=== PATIENT | female | born 1970 | race Caucasian/White ===

== ENCOUNTER 2017-09-26 18:53 | Inpatient (IN) | payer BC ==
[~2017-09-26] VITALS: Ht 162.6 cm; Wt 52.9 kg
[2017-09-26 18:15] VITALS: BP 101/55; PULSE 65; RESP 18
[2017-09-26] MEDS ORDERED: LACTULOSE 30ML CUP PO PRN (19:30)
[2017-09-26] MEDS ORDERED: MAGNESIUM HYDROXIDE 30ML CUP PO PRN (19:30)
[2017-09-26] MEDS ORDERED: ACETAMINOPHEN 325 MG TAB PO PRN (19:30)
[2017-09-26] MEDS ORDERED: BISACODYL 10 MG SUPP PR PRN (19:30)
[2017-09-26 20:00] VITALS: BP 102/60; PULSE 86; RESP 18
[2017-09-26] MEDS ORDERED: DOCUSATE SODIUM 100 MG CAP PO SCH (21:00)
[2017-09-26] MEDS ORDERED: SENNA TAB PO SCH (21:00)
[2017-09-26] MEDS ORDERED: ACETAMINOPHEN 650MG/20.3ML CUP GTB PRN (22:00)
[2017-09-26] MEDS ORDERED: ONDANSETRON 4 MG INJ IV PRN (22:00)
[2017-09-26] MEDS ORDERED: ARTIFICIAL TEARS 15 ML OPH BOTH EYES PRN (22:00)
[2017-09-26] MEDS ORDERED: HYDROCODONE/APAP (5/325) TAB GTB PRN ×2 (22:00→22:30)
[2017-09-26] MEDS ORDERED: ACETAMINOPHEN 650 MG SUPP PR PRN (22:00)
[2017-09-26] MEDS: LEVETIRACETAM (100 MG/ML) 5ML CUP GTB SCH (22:02)
[2017-09-26] MEDS ORDERED: LORAZEPAM 2 MG INJ IV PRN (22:30)
[2017-09-27 00:12] VITALS: Ht 162.6 cm; Wt 52.9 kg
[2017-09-27] MEDS: LORAZEPAM 2 MG INJ IV PRN ×5 (00:33→23:58)
[2017-09-27 02:00] VITALS: BP 101/62; RESP 18
[2017-09-27 03:50] LABS: ADD UMIC NO; UR ASCORBIC ACID NEGATIVE (NEGATIVE); UR BILIRUBIN (Dip) NEGATIVE (NEGATIVE); UR BLOOD (Dip) NEGATIVE (NEGATIVE); UR CLARITY CLEAR (CLEAR); UR COLOR YELLOW (YELLOW); UR GLUCOSE (Dip) NEGATIVE (NEGATIVE); UR KETONES (Dip) NEGATIVE (NEGATIVE); UR LEUKOCYTE ESTERASE (Dip) NEGATIVE Leu/ul (NEGATIVE); UR NITRITE (Dip) NEGATIVE (NEGATIVE); UR SPECIFIC GRAVITY (Dip) 1.006 (1.003-1.030); UR TOTAL PROTEIN (Dip) NEGATIVE (NEGATIVE); UR UROBILINOGEN (Dip) NEGATIVE (NEGATIVE)
[2017-09-27] MEDS: LANSOPRAZOLE 30 MG CAP GTB SCH (06:45)
[2017-09-27] MEDS: L ACIDOPHIL/B LACTIS/B LONGUM CAPSULE PO SCH ×3 (06:45→18:23)
[2017-09-27] MEDS: CIPROFLOXACIN 500 MG TAB GTB SCH ×2 (06:45→18:23)
[2017-09-27] MEDS: LEVOTHYROXINE 100 MCG TAB GTB SCH (06:45)
[2017-09-27 07:00] VITALS: BP 108/64; RESP 18
[2017-09-27 07:27] LABS: BASOPHILS % 0.6 % (0.0-2.0); EOSINOPHILS # 0.1 10^3/ul (0.0-0.5); EOSINOPHILS % 1.8 % (0.0-7.0); HEMATOCRIT 33.5 % (37.0-47.0); HEMOGLOBIN 10.7 g/dl (12.0-16.0); LYMPHOCYTES % 38.7 % (15.0-51.0); MEAN CORPUSCULAR HEMOGLOBIN 30.7 pg (29.0-33.0); MEAN CORPUSCULAR HGB CONC 31.9 g/dl (32.0-37.0); MEAN CORPUSCULAR VOLUME 96.3 fl (82.0-101.0); MEAN PLATELET VOLUME 10.2 fl (7.4-10.4); MONOCYTE # 0.4 10^3/ul (0.3-0.9); MONOCYTES % 7.2 % (0.0-11.0); NEUTROPHIL # 2.6 10^3/ul (1.6-7.5); NEUTROPHILS % 51.5 % (39.0-77.0); PLATELET COUNT 218 10^3/UL (140-415); RED BLOOD COUNT 3.48 10^6/ul (4.20-5.40); RED CELL DISTRIBUTION WIDTH 14.8 % (11.5-14.5); WHITE BLOOD COUNT 5.1 10^3/ul (4.8-10.8)
[2017-09-27 07:55] LABS: ALBUMIN 3.7 g/dl (3.3-4.9); ALBUMIN/GLOBULIN RATIO 1.37; BILIRUBIN,INDIRECT 0.1 mg/dl (0-1.1); BILIRUBIN,TOTAL 0.1 mg/dl (0.2-1.3); CALCIUM 9.1 mg/dl (8.4-10.2); CREATININE 0.54 mg/dl (0.44-1.00); POTASSIUM 4.2 mmol/L (3.5-5.1); TOTAL PROTEIN 6.4 g/dl (6.1-8.1)
[2017-09-27] MEDS ORDERED: SENNA (PO SYG) GTB SCH (09:00)
[2017-09-27] MEDS: VALPROIC ACID LIQUID CUP 250 MG/5 ML CUP GTB SCH ×2 (09:15→20:46)
[2017-09-27] MEDS: LEVETIRACETAM (100 MG/ML) 5ML CUP GTB SCH ×2 (09:16→20:48)
[2017-09-27] MEDS: MULTIVITAMINS 30 ML CUP GTB SCH (09:17)
[2017-09-27] MEDS: FOLIC ACID 1 MG TAB GTB SCH (09:17)
[2017-09-27] MEDS: DOCUSATE SODIUM 10 MG/ML (10ML CUP) GTB SCH ×2 (09:18→20:46)
[2017-09-27] MEDS: SENNA (PO SYG) GTB SCH ×2 (09:18→20:46)
[2017-09-27] MEDS: BALSAM PERU/CASTOR OIL 60 GM TUBE TOP SCH ×2 (09:19→20:54)
[2017-09-27] MEDS: CHLORHEXIDINE GLUCONATE 15 ML UD CUP MT SCH ×2 (09:20→20:45)
--- NOTE | 2017-09-27 09:51 | HP ---
DATE OF ADMISSION: 09/26/2017 CHIEF COMPLAINT: Respiratory failure, overdose. HISTORY OF PRESENT ILLNESS: This is a 47-year-old female with a past medical history of depression, hypothyroidism, fibromyalgia who presented initially to an outside hospital after overdosing on Wel lbutrin and Cymbalta with an attempted suicide. The patient was also reported to be intoxicated wit h alcohol. The patient was found to be unresponsive having seizures, 911 was called. The patient w as taken to an outside hospital where she was in respiratory failure. The patient was intubated, un able to be extubated, was eventually trached and pegged. The patient was eventually stabilized and transferred to [facility]. While at [facility], the patient had a good clinical response . She was able to be weaned off the trach and eventually decannulated. The patient was then transf erred to acute rehab for continued care. PAST MEDICAL HISTORY: History of depression, anxiety disorder, fibromyalgia. PAST SURGICAL HISTORY: Status post trach, status post PEG. FAMILY HISTORY: Noncontributory. SOCIAL HISTORY: History of alcohol use. MEDICATIONS: The patient's medications have been reviewed and reconciled. REVIEW OF SYSTEMS: A 14-point review of systems was conducted. Pertinent positives stated in HPI, otherwise negative. PHYSICAL EXAMINATION: VITAL SIGNS: Blood pressure is 101/62, respiration 18, pulse 72, temperature 98.3. HEENT: Head is normocephalic. NECK: Supple. HEART: Regular rate. LUNGS: Show diminished breath sounds at the base. ABDOMEN: Soft, nontender to palpation. Positive PEG. EXTREMITIES: Negative for clubbing, cyanosis, no edema. DERMATOLOGIC: No rashes. MUSCULOSKELETAL: No joint effusions. NEUROLOGIC: Limited exam, but no obvious focal deficits. LABORATORY DATA: Shows a white count 5.1, hemoglobin 10.7, hematocrit 33.5, platelet count 215. Ur inalysis is bland. ASSESSMENT AND PLAN: This is a 47-year-old female who presents with: 1. Status post cardiac arrest secondary to drug overdose. The patient is currently stable. We shad l continue to monitor. Continue current medical management. 2. Chronic respiratory failure, status post tracheostomy with decannulation. Will continue to obse rve. We will give breathing treatments as needed. 3. Dysphagia. Continue to encourage oral intake. 4. Hypothyroidism. Continue Synthroid. 5. Seizure disorder. Continue Keppra. 6. Urinary tract infection. Continue Cipro. 7. Depression and anxiety disorder. Continue Ativan and valproic acid. 8. General debility. Continue PT, OT for acute rehabilitation. 9. Status post facial trauma. 10. Status post acute kidney injury. 11. Status post aspiration pneumonia. 12. Anemia. Monitor hemoglobin and hematocrit levels. 13. Encephalopathy. Etiology is toxic metabolic, status post cardiac arrest. Continue to monitor. 14. Gastrointestinal and deep venous thrombosis prophylaxis. Please note I spent 25 minutes face to face with the patient. The patient is FULL CODE. Dictated By: RANJIT MADRID DO NR/NTS Conf#: [id number] DID#: [id number]
--- NOTE | 2017-09-27 13:23 | CONS ---
DATE OF ADMISSION: 09/26/2017 DATE OF CONSULTATION: 09/27/2017 REHABILITATION POST ADMISSION PHYSICIAN EVALUATION REHABILITATION IMPAIRMENT CATEGORY: Toxic metabolic encephalopathy in addition to blunt head trauma. ACTIVE COMORBIDITIES: 1. Debility, status post respiratory failure. 2. Status post pneumonia. 3. Seizure disorder. 4. Acute renal failure. 5. Dysphagia. 6. Anemia. 7. Impairments in self-care, mobility and cognition. HISTORY OF PRESENT ILLNESS: The patient is a 47-year-old right-handed female with a history of depression who is status post respiratory failure from major drug overdose in addition to ventricular fibrillation. The patient did require tracheostomy with eventual decannulation. The patient overall pulmonary status has improved and patient does have significant impairments in self-care and mobility and cognition as compared to baseline, and has been cleared to transfer to the rehabilitation unit for comprehensive interdisciplinary rehab care. FUNCTIONAL HISTORY: Prior to recent events, she was independent in self-care tasks and mobility. Currently, the patient requires moderate assist for self-care and mobility tasks. I have reviewed the preadmission screen and the patient's current functional status is consistent with the preadmission screen. SOCIAL HISTORY: The patient lives at home with her and daughter and hopes to return there upon discharge. PAST MEDICAL HISTORY: Depression. CURRENT MEDICATIONS: 1. Cipro 500 mg b.i.d. 2. Folic acid 1 mg p.o. daily. 3. [place] p.r.n. 4. Prevacid 30 mg p.o. daily. 5. Keppra 500 mg b.i.d. 6. Synthroid 100 mcg q.a.m. 7. Ativan p.r.n. 8. Senokot p.r.n. 9. Desyrel 200 mg p.o. at bedtime. 10. Valproic acid 500 mg b.i.d. ALLERGIES: THE PATIENT WITH NO KNOWN DRUG ALLERGIES. PHYSICAL EXAMINATION: VITAL SIGNS: The patient is currently afebrile with stable vital signs. HEENT: Extraocular motion intact. Oropharynx clear. NECK: Supple. The patient with missing left frontal tooth. LUNGS: Clear. ABDOMEN: Soft. NEUROLOGIC: She is awake and alert. She is oriented to person and hospital and the month. She will follow simple 1-step commands. She demonstrates antigravity strength in bilateral upper extremity and lower extremity. PLAN: The patient has been admitted for comprehensive interdisciplinary acute rehab and is anticipated to tolerate 3 hours of daily therapy in divided doses for at least 5/7 days a week. The treatment plan will include: 1. Physical therapy to focus on bed mobility, transfers, and household ambulation with the goal of having the patient reach standby assist level. 2. Occupational therapy to focus on hygiene, grooming, dressing, bathing, and toileting activities with the goal of having the patient reach standby assist level. 3. Speech therapy for full cognitive assessment and retraining in addition to dysphagia management with the goal of having the patient meet nutritional needs by mouth, and to return to baseline cognition. 4. Rehabilitation nursing for carryover of therapeutic interventions, the goal of continent of bowel and bladder, the goal of patient and family education with regard to the aforementioned issues. Given the history of depression and the patient did have recent psychiatric evaluation and patient was cleared to transfer to the rehabilitation unit. We will order tele psyche for follow up in addition to outpatient psychiatric followup. REHABILITATION BARRIER: Cognition. INTERVENTION FOR BARRIER: Speech therapy. ESTIMATED LENGTH OF STAY: 10 days. DISPOSITION GOAL: Home. I acknowledge that I performed a full physical examination on this patient within 24 hours of admission to the rehabilitation unit. I believe the patient is a good candidate for comprehensive interdisciplinary rehab care and is anticipated to make reasonable goals in a reasonable period of time as outlined above. Dictated By: AMITA TORRES/FREYA Conf#: [id number] DID#: [id number] MTDD
--- NOTE | 2017-09-27 15:20 | PSY ---
Date/Time of Note Date/Time of Note DATE: 09/27/17 TIME: 15:14 Psychiatric Subjective Eval Consent Pt consented to telemedicine: Yes Subjective Evaluation Patient location: inpatient Chief Complaint: s/p SA History of present illness report provided by Emily GOINS Pt is 47 yo female with hx mood disorder s/p SA by OD on Cymbalta nad Wellbutrin. Per Emily, pt's told, pt expressed SI to him. Pt is very difficult to evaluated because of her speech imapirment. She says she is very deprssed, she is glad to be alive and no longer suicidal but she appear sto be quite labile. Due to pt's obious difficulties speaking i was not able to obtain onformation about her reasons to OD but she is tearful at times. Denies AH or Vh. Denies hx drug or alcohol use but per [facility], OD on alcohol as well. Past psychiatric history prior hx SA nad inpt psych Hospitalization: Suicidal Attempt(s) Family History denies Medical history as per record Allergies: Coded Allergies: No Known Allergy (Unverified , 09/06/17) Substance Abuse Substance use: No known substance abuse Social History Marital status: Level of education: college DPA/Conservatorship: No Occupation/Snf: musician Psychiatric Objective Eval Physical Examination: Physical Examination: Not Applicable Mental Status Examination: Appearance: Disheveled Eye Contact: Good Psychomotor Activity: Normal Behavior: Cooperative Speech: Other AFFECT: Libile Mood: Depressed Though Process: Linear Thought Content: Normal Suicidal: Yes Homicidal: No On 72 hour hold: No Orientation: x3 Cognition: Alert Insight: Impared Judgement: Impared Laboratory Results Laboratory Tests Test 09/27/17 06:45 White Blood Count 5.110^3/ul Red Blood Count 3.4810^6/ul Hemoglobin 10.7g/dl Hematocrit 33.5% Mean Corpuscular Volume 96.3fl Mean Corpuscular Hemoglobin 30.7pg Mean Corpuscular Hemoglobin Concent 31.9g/dl Red Cell Distribution Width 14.8% Platelet Count 13361^3/UL Mean Platelet Volume 10.2fl Neutrophils % 51.5% Lymphocytes % 38.7% Monocytes % 7.2% Eosinophils % 1.8% Basophils % 0.6% Nucleated Red Blood Cells % 0.0/100WBC Neutrophils # 2.610^3/ul Lymphocytes # 2.010^3/ul Monocytes # 0.410^3/ul Eosinophils # 0.110^3/ul Basophils # 0.010^3/ul Nucleated Red Blood Cells # 0.010^3/ul Sodium Level 144mmol/L Potassium Level 4.2mmol/L Chloride Level 104mmol/L Carbon Dioxide Level 28mmol/L Anion Gap 16 Blood Urea Nitrogen 6mg/dl Creatinine 0.54mg/dl Glucose Level 87mg/dl Calcium Level 9.1mg/dl Total Bilirubin 0.1mg/dl Direct Bilirubin 0.00mg/dl Indirect Bilirubin 0.1mg/dl Aspartate Amino Transf (AST/SGOT) 25IU/L Alanine Aminotransferase (ALT/SGPT) 37IU/L Alkaline Phosphatase 75IU/L Total Protein 6.4g/dl Albumin 3.7g/dl Globulin 2.70g/dl Albumin/Globulin Ratio 1.37 Assessment and Plan Assessment/Diagnosis [place] I: Unspecified mood disorder [place] II: defered [place] III: as per record [place] IV: moderate [place] V: gaf 25 Recommendation/Plan Medication Management please strongly consider to resume home meds - at least consider resuming Cymbalta. Psychotherapy defer to inpt Follow-up/Disposition 5150 for DTS; 1:1 sitter; transfer to inpt psych then medically stable. 5150 Recommendation: GIBSON Carias MD Sep 27, 2017 15:20
[2017-09-27 20:00] VITALS: BP 102/57; RESP 18
[2017-09-27] MEDS: traZODone 100 MG TAB GTB SCH (20:45)
[2017-09-27] MEDS: LATUDA 80 MG TABLET GTB SCH (20:47)
[2017-09-28 02:00] VITALS: BP 110/63; RESP 18
[2017-09-28] MEDS: LEVOTHYROXINE 100 MCG TAB GTB SCH (05:21)
[2017-09-28] MEDS: CIPROFLOXACIN 500 MG TAB GTB SCH ×2 (05:22→17:50)
[2017-09-28] MEDS: LANSOPRAZOLE 30 MG CAP GTB SCH (05:22)
[2017-09-28 07:28] LABS: BASOPHILS % 0.4 % (0.0-2.0); EOSINOPHILS # 0.2 10^3/ul (0.0-0.5); HEMATOCRIT 32.4 % (37.0-47.0); HEMOGLOBIN 10.9 g/dl (12.0-16.0); LYMPHOCYTES # 2.2 10^3/ul (0.8-2.9); LYMPHOCYTES % 44.6 % (15.0-51.0); MEAN CORPUSCULAR HEMOGLOBIN 32.6 pg (29.0-33.0); MEAN CORPUSCULAR HGB CONC 33.6 g/dl (32.0-37.0); MEAN PLATELET VOLUME 10.1 fl (7.4-10.4); MONOCYTE # 0.4 10^3/ul (0.3-0.9); NEUTROPHIL # 2.2 10^3/ul (1.6-7.5); NEUTROPHILS % 44.8 % (39.0-77.0); PLATELET COUNT 213 10^3/UL (140-415); RED BLOOD COUNT 3.34 10^6/ul (4.20-5.40); RED CELL DISTRIBUTION WIDTH 14.6 % (11.5-14.5)
[2017-09-28 07:30] VITALS: BP 101/52; RESP 17
[2017-09-28 08:01] VITALS: BP 101/52; RESP 17
[2017-09-28 08:16] LABS: CALCIUM 9.3 mg/dl (8.4-10.2); CREATININE 0.56 mg/dl (0.44-1.00); MAGNESIUM 1.8 mg/dl (1.7-2.5); PHOSPHORUS 5.3 mg/dl (2.5-4.9); POTASSIUM 4.1 mmol/L (3.5-5.1)
[2017-09-28] MEDS: BALSAM PERU/CASTOR OIL 60 GM TUBE TOP SCH ×2 (09:00→21:30)
[2017-09-28] MEDS: CHLORHEXIDINE GLUCONATE 15 ML UD CUP MT SCH ×2 (09:00→21:25)
[2017-09-28] MEDS: SENNA (PO SYG) GTB SCH ×2 (09:00→21:25)
--- NOTE | 2017-09-28 09:13 | PN ---
DATE: 09/28/2017 SUBJECTIVE: The patient appears stable, no acute events overnight. Please note I did speak with th e patient's family yesterday and they were concerned about patient's suicidal ideation. The patient had a telepsychiatry evaluation who recommended a 51-50 hold. No other events noted. OBJECTIVE: VITAL SIGNS: Blood pressure 110/63, respiration 18, pulse 72, temperature 98.3. HEENT: Head is normocephalic. NECK: Supple. HEART: Regular rate. LUNGS: Show diminished breath sounds at the base. ABDOMEN: Soft, nontender to palpation. No rebound or guarding. EXTREMITIES: Negative for clubbing or cyanosis. No edema. DERMATOLOGIC: No rashes. MUSCULOSKELETAL: No joint effusions. NEUROLOGIC: No change in exam. MEDICATIONS: The patient's medications have been reviewed. LABORATORY DATA: From 09/27/2017 were reviewed. ASSESSMENT AND PLAN: 1. Status post cardiac arrest secondary to drug overdose. The patient is currently stable. Contin ue to monitor. 2. Chronic respiratory failure, status post tracheostomy with decannulation. Will continue to obse rve. 3. Dysphagia. Continue to encourage oral intake. 4. Hypothyroidism. Continue Synthroid. 5. Seizure disorder. Continue Keppra. 6. Urinary tract infection. The patient is completing a course of Cipro. 7. History of depression and anxiety disorder, suicidal ideation. The patient is status post telep sychiatric evaluation. Will continue Ativan and valproic acid. Will start the patient on Cymbalta. Monitor closely. 8. General debility. Continue physical therapy. 9. Anemia. Monitor hemoglobin and hematocrit levels. 10. Encephalopathy. Etiology is toxic metabolic and anoxic injury. Mental status slowly improving . 11. Gastrointestinal and deep venous thrombosis prophylaxis. 12. Status post acute kidney injury. 13. Status post aspiration pneumonia. 14. Status post facial trauma. Dictated By: RANJIT MARTINEZ/FREYA Conf#: [id number] DID#: [id number]
[2017-09-28] MEDS: LORAZEPAM 2 MG INJ IV PRN ×4 (09:36→21:26)
[2017-09-28] MEDS: DOCUSATE SODIUM 10 MG/ML (10ML CUP) GTB SCH ×2 (09:44→21:26)
[2017-09-28] MEDS: LEVETIRACETAM (100 MG/ML) 5ML CUP GTB SCH ×2 (09:44→21:25)
[2017-09-28] MEDS: VALPROIC ACID LIQUID CUP 250 MG/5 ML CUP GTB SCH ×2 (09:45→21:25)
[2017-09-28] MEDS: FOLIC ACID 1 MG TAB GTB SCH (09:45)
[2017-09-28] MEDS: DULOXETINE 30 MG CAP DR PO SCH (09:45)
[2017-09-28] MEDS: MULTIVITAMINS 30 ML CUP GTB SCH (09:45)
[2017-09-28] MEDS: L ACIDOPHIL/B LACTIS/B LONGUM CAPSULE PO SCH ×3 (09:45→17:50)
--- NOTE | 2017-09-28 11:19 | CONS ---
Date/Time of Note Date/Time of Note DATE: 09/28/17 TIME: Consult Date/Type/Reason Admit Date/Time Sep 26, 2017 at 18:53 Initial Consult Date Subjective In good spirits Objective pulm-cta abd-soft mod assist Vital Signs Date Time Temp Pulse Resp B/P Pulse Ox O2 Delivery O2 Flow Rate FiO2 09/28/17 08:01 97.9 61 17 101/52 95 09/26/17 20:00 Room Air Intake and Output 09/27/17 09/27/17 09/28/17 15:00 23:00 07:00 Intake Total 700 ml 1250 ml 750 ml Output Total 600 ml Balance 700 ml 650 ml 750 ml Results/Medications Result Diagram: 09/28/17 0659 09/28/17 0659 Results 24 hrs Laboratory Tests Test 09/28/17 06:59 White Blood Count 5.0 Red Blood Count 3.34 L Hemoglobin 10.9 L Hematocrit 32.4 L Mean Corpuscular Volume 97.0 Mean Corpuscular Hemoglobin 32.6 Mean Corpuscular Hemoglobin Concent 33.6 Red Cell Distribution Width 14.6 H Platelet Count 213 Mean Platelet Volume 10.1 Neutrophils % 44.8 Lymphocytes % 44.6 Monocytes % 7.0 Eosinophils % 3.0 Basophils % 0.4 Nucleated Red Blood Cells % 0.0 Neutrophils # 2.2 Lymphocytes # 2.2 Monocytes # 0.4 Eosinophils # 0.2 Basophils # 0.0 Nucleated Red Blood Cells # 0.0 Sodium Level 142 Potassium Level 4.1 Chloride Level 105 Carbon Dioxide Level 28 Anion Gap 13 Blood Urea Nitrogen 5 L Creatinine 0.56 Glucose Level 80 Calcium Level 9.3 Phosphorus Level 5.3 H Magnesium Level 1.8 Medications Current Medications Magnesium Hydroxide (Milk Of Mag) 30 ml BID PRN PO CONSTIPATION; Start at 19:30 Lactulose (Enulose) 20 gm DAILY PRN PO CONSTIPATION; Start 09/26/17 at 19:30 Bisacodyl (Dulcolax Supp) 10 mg DAILY PRN [place] CONSTIPATION; Start 09/26/17 at 19 :30 Acetaminophen (Tylenol Tab) 650 mg Q4H PRN PO PAIN; Start 09/26/17 at 19:30 Acetaminophen (Tylenol Supp) 650 mg Q4H PRN [place] PAIN AND OR ELEVATED TEMP; Start 09/26/17 at 22:00 Acetaminophen (Tylenol Liquid) 650 mg Q4H PRN GTB PAIN AND OR ELEVATED TEMP; Start 09/26/17 at 22:00 Eye Lubricant (Artificial Tears Oph) 1 drop Q1H PRN BOTH EYES DRY EYES; Start 09/26/17 at 22:00 Chlorhexidine Gluconate (Peridex) 15 ml Q12 MT Last administered on 09/28/17 09:00; Admin Dose 15 ML; Start 09/27/17 at 09:00 Ciprofloxacin (Cipro) 500 mg BID@,18 GTB Last administered on 09/28/17 05:22 ; Admin Dose 500 MG; Start 09/27/17 at 06:00 Docusate Sodium (Colace Liquid Cup) 100 mg BID GTB Last administered on 09:44; Admin Dose 100 MG; Start 09/27/17 at 09:00 Folic Acid (Folic Acid) 1 mg DAILY GTB Last administered on 09/28/17 09:45; Admin Dose 1 MG; Start 09/27/17 at 09:00 Acetaminophen/ Hydrocodone Bitart ([place] (5/325)) 1 tab Q4H PRN GTB PAIN; Start 09/26/17 at 22:00 Multivitamins (Multivitamin) 30 ml DAILY GTB Last administered on 09/28/17 09: 45; Admin Dose 30 ML; Start 09/27/17 at 09:00 Ondansetron HCl (Zofran Inj) 4 mg Q6H PRN IV NAUSEA AND/OR VOMITING; Start 09/26/17 at 22:00 Patient Own Medication 0.5 ea QHS GTB Last administered on 09/27/17 20:47; Admin Dose 0.5 EA; Start 09/27/17 at 21:00 Valproate Sodium (Depakene Liquid Cup) 500 mg BID GTB Last administered on 09/28 09:45; Admin Dose 500 MG; Start 09/27/17 at 09:00 Trazodone HCl (Desyrel) 200 mg QHS GTB Last administered on 09/27/17 20:45; Admin Dose 200 MG; Start 09/27/17 at 21:00 Simethicone (Mylicon Oral Drop) 40 mg PRN PRN GTB GAS PAIN; Start 09/26/17 at 22:00 Acetaminophen/ Hydrocodone Bitart ([place] (5/325)) 2 tab Q4H PRN GTB PAIN; Start 09/26/17 at 22:30 Lansoprazole (Prevacid) 30 mg DAILY@06 GTB Last administered on 09/28/17 05:22 ; Admin Dose 30 MG; Start 09/27/17 at 06:00 Levetiracetam (Keppra Liquid) 500 mg BID GTB Last administered on 09/28/17 09: 44; Admin Dose 500 MG; Start 09/26/17 at 22:02 Levothyroxine Sodium (Synthroid) 100 mcg DAILY@06 GTB Last administered on 09/28 05:21; Admin Dose 100 MCG; Start 09/27/17 at 06:00 Morphine Sulfate (morphine) 2 mg Q2H PRN IV PAIN; Start 09/26/17 at 22:30 Senna (Senokot (Ped)) 5 ml BID GTB Last administered on 09/27/17 20:46; Admin Dose 5 ML; Start 09/27/17 at 09:00 Lorazepam (Ativan) 2 mg Q4H PRN IV Anxiety/Seizure Last administered on 09:36; Admin Dose 2 MG; Start 09/26/17 at 22:45 Duloxetine HCl (Cymbalta) 30 mg DAILY PO Last administered on 09/28/17 09:45; Admin Dose 30 MG; Start 09/28/17 at 09:00 Assessment/Plan Additional Assessment/Plan Rehab- Toxic metabolic encephalopathy in addition to blunt head trauma. Progressing with treatment plan Debility, status post respiratory failure. Status post pneumonia. Seizure disorder. Acute renal failure. Dysphagia- sppech therapy Anemia. .Depression- continue current meds AMITA BILL MD Sep 28, 2017 11:19
[2017-09-28 14:00] VITALS: BP 104/59; RESP 18
[2017-09-28 20:00] VITALS: BP 101/56; RESP 18
[2017-09-28] MEDS: LATUDA 80 MG TABLET GTB SCH (21:26)
[2017-09-28] MEDS: traZODone 100 MG TAB GTB SCH (21:26)
[2017-09-29 02:00] VITALS: BP 105/64; RESP 18
[2017-09-29] MEDS: LANSOPRAZOLE 30 MG CAP GTB SCH (06:48)
[2017-09-29] MEDS: L ACIDOPHIL/B LACTIS/B LONGUM CAPSULE PO SCH ×3 (06:48→16:58)
[2017-09-29] MEDS: CIPROFLOXACIN 500 MG TAB GTB SCH ×2 (06:48→16:58)
[2017-09-29] MEDS: LEVOTHYROXINE 100 MCG TAB GTB SCH (06:48)
[2017-09-29 07:30] VITALS: BP 86/50; RESP 18
--- NOTE | 2017-09-29 08:18 | PN ---
DATE: 09/29/2017 SUBJECTIVE: The patient is stable. The patient denies any suicidal ideation. No other events note d. OBJECTIVE: VITAL SIGNS: Blood pressure 105/64, respiration 18, pulse 80, temperature 98.5. HEENT: Head is normocephalic. NECK: Supple. HEART: Regular rate. LUNGS: Show diminished breath sounds at the base. ABDOMEN: Soft, nontender to palpation. No rebound or guarding. EXTREMITIES: Negative for clubbing, cyanosis, no edema. DERMATOLOGIC: No rashes. MUSCULOSKELETAL: No joint effusions. NEUROLOGIC: No change in exam. MEDICATIONS: Have been reviewed. LABORATORY DATA: Has been reviewed. ASSESSMENT AND PLAN: 1. Status post cardiac arrest secondary to drug overdose. The patient is currently stable. Contin ue to monitor. 2. Chronic respiratory failure, status post tracheostomy with decannulation. Continue to observe. 3. Dysphagia. Continue oral intake. We will place a GI consult to remove the patient's percutaneo us endoscopic gastrostomy tube. 4. Hypothyroidism. Continue Synthroid. 5. Seizure disorder. Continue Keppra. 6. Urinary tract infection. The patient is completing course of Cipro. 7. History of depression and anxiety disorder. The patient is currently on Ativan and valproic aci d and Cymbalta. The patient denies suicidal ideation at this time. 8. Anemia. Monitor hemoglobin and hematocrit levels. 9. Encephalopathy, toxic metabolic, improving. 10. Gastrointestinal and deep vein thrombosis prophylaxis. Dictated By: RANJIT MARTINEZ/FREYA Conf#: [id number] DID#: [id number]
[2017-09-29] MEDS: LEVETIRACETAM (100 MG/ML) 5ML CUP GTB SCH ×2 (09:33→20:52)
[2017-09-29] MEDS: DOCUSATE SODIUM 10 MG/ML (10ML CUP) GTB SCH ×2 (09:33→20:52)
[2017-09-29] MEDS: FOLIC ACID 1 MG TAB GTB SCH (09:33)
[2017-09-29] MEDS: CHLORHEXIDINE GLUCONATE 15 ML UD CUP MT SCH ×2 (09:33→20:53)
[2017-09-29] MEDS: SENNA (PO SYG) GTB SCH ×2 (09:33→20:52)
[2017-09-29] MEDS: VALPROIC ACID LIQUID CUP 250 MG/5 ML CUP GTB SCH ×2 (09:33→20:52)
[2017-09-29] MEDS: MULTIVITAMINS 30 ML CUP GTB SCH (09:33)
[2017-09-29] MEDS: DULOXETINE 30 MG CAP DR PO SCH (09:33)
[2017-09-29] MEDS: BALSAM PERU/CASTOR OIL 60 GM TUBE TOP SCH ×2 (09:34→20:53)
--- NOTE | 2017-09-29 09:35 | CONS ---
Date/Time of Note Date/Time of Note DATE: 09/29/17 TIME: 09:35 Consult Date/Type/Reason Admit Date/Time Sep 26, 2017 at 18:53 Subjective Motivated Objective pulm-cta min assist Vital Signs Date Time Temp Pulse Resp B/P Pulse Ox O2 Delivery O2 Flow Rate FiO2 09/29/17 07:30 98.2 84 18 86/50 98 09/28/17 07:30 Room Air Intake and Output 09/28/17 09/28/17 09/29/17 15:00 23:00 07:00 Intake Total 1350 ml 1230 ml Output Total 600 ml Balance 750 ml 1230 ml Results/Medications Result Diagram: 09/28/1759 09/28/17658 Medications Current Medications Magnesium Hydroxide (Milk Of Mag) 30 ml BID PRN PO CONSTIPATION; Start at 19:30 Lactulose (Enulose) 20 gm DAILY PRN PO CONSTIPATION; Start 09/26/17 at 19:30 Bisacodyl (Dulcolax Supp) 10 mg DAILY PRN [place] CONSTIPATION; Start 09/26/17 at 19 :30 Acetaminophen (Tylenol Tab) 650 mg Q4H PRN PO PAIN; Start 09/26/17 at 19:30 Acetaminophen (Tylenol Supp) 650 mg Q4H PRN [place] PAIN AND OR ELEVATED TEMP; Start 09/26/17 at 22:00 Acetaminophen (Tylenol Liquid) 650 mg Q4H PRN GTB PAIN AND OR ELEVATED TEMP; Start 09/26/17 at 22:00 Eye Lubricant (Artificial Tears Oph) 1 drop Q1H PRN BOTH EYES DRY EYES; Start 09/26/17 at 22:00 Chlorhexidine Gluconate (Peridex) 15 ml Q12 MT Last administered on 09/29/17 09:33; Admin Dose 15 ML; Start 09/27/17 at 09:00 Ciprofloxacin (Cipro) 500 mg BID@,18 GTB Last administered on 09/29/17 06:48 ; Admin Dose 500 MG; Start 09/27/17 at 06:00 Docusate Sodium (Colace Liquid Cup) 100 mg BID GTB Last administered on 09:33; Admin Dose 100 MG; Start 09/27/17 at 09:00 Folic Acid (Folic Acid) 1 mg DAILY GTB Last administered on 09/29/17 09:33; Admin Dose 1 MG; Start 09/27/17 at 09:00 Acetaminophen/ Hydrocodone Bitart ([place] (5/325)) 1 tab Q4H PRN GTB PAIN; Start 09/26/17 at 22:00 Multivitamins (Multivitamin) 30 ml DAILY GTB Last administered on 09/29/17 09: 33; Admin Dose 30 ML; Start 09/27/17 at 09:00 Ondansetron HCl (Zofran Inj) 4 mg Q6H PRN IV NAUSEA AND/OR VOMITING; Start 09/26/17 at 22:00 Patient Own Medication 0.5 ea QHS GTB Last administered on 09/28/17 21:26; Admin Dose 0.5 EA; Start 09/27/17 at 21:00 Valproate Sodium (Depakene Liquid Cup) 500 mg BID GTB Last administered on 09/29 09:33; Admin Dose 500 MG; Start 09/27/17 at 09:00 Trazodone HCl (Desyrel) 200 mg QHS GTB Last administered on 09/28/17 21:26; Admin Dose 200 MG; Start 09/27/17 at 21:00 Simethicone (Mylicon Oral Drop) 40 mg PRN PRN GTB GAS PAIN; Start 09/26/17 at 22:00 Acetaminophen/ Hydrocodone Bitart ([place] (5/325)) 2 tab Q4H PRN GTB PAIN; Start 09/26/17 at 22:30 Lansoprazole (Prevacid) 30 mg DAILY@06 GTB Last administered on 09/29/17 06:48 ; Admin Dose 30 MG; Start 09/27/17 at 06:00 Levetiracetam (Keppra Liquid) 500 mg BID GTB Last administered on 09/29/17 09: 33; Admin Dose 500 MG; Start 09/26/17 at 22:02 Levothyroxine Sodium (Synthroid) 100 mcg DAILY@06 GTB Last administered on 09/29 06:48; Admin Dose 100 MCG; Start 09/27/17 at 06:00 Morphine Sulfate (morphine) 2 mg Q2H PRN IV PAIN; Start 09/26/17 at 22:30 Senna (Senokot (Ped)) 5 ml BID GTB Last administered on 09/29/17 09:33; Admin Dose 5 ML; Start 09/27/17 at 09:00 Lorazepam (Ativan) 2 mg Q4H PRN IV Anxiety/Seizure Last administered on 21:26; Admin Dose 2 MG; Start 09/26/17 at 22:45 Duloxetine HCl (Cymbalta) 30 mg DAILY PO Last administered on 09/29/17 09:33; Admin Dose 30 MG; Start 09/28/17 at 09:00 Assessment/Plan Additional Assessment/Plan Rehab- Toxic metabolic encephalopathy in addition to blunt head trauma. Progressing with rehab program Debility, status post respiratory failure. Status post pneumonia. Seizure disorder. Acute renal failure. Dysphagia- sppech therapy Anemia. .Depression- continue current meds AMITA BILL MD Sep 29, 2017 09:35
[2017-09-29] MEDS: LORAZEPAM 2 MG INJ IV PRN ×2 (11:58→20:53)
[2017-09-29 14:00] VITALS: BP 85/47; RESP 18
[2017-09-29] MEDS: traZODone 100 MG TAB GTB SCH (20:52)
[2017-09-29] MEDS: LATUDA 80 MG TABLET GTB SCH (20:54)
[2017-09-30] MEDS: LEVOTHYROXINE 100 MCG TAB GTB SCH (06:25)
[2017-09-30] MEDS: LANSOPRAZOLE 30 MG CAP GTB SCH (06:25)
[2017-09-30] MEDS: CIPROFLOXACIN 500 MG TAB GTB SCH ×2 (06:25→17:57)
[2017-09-30] MEDS: L ACIDOPHIL/B LACTIS/B LONGUM CAPSULE PO SCH ×3 (07:30→17:57)
[2017-09-30 08:00] VITALS: BP 92/64; RESP 18
[2017-09-30] MEDS: CHLORHEXIDINE GLUCONATE 15 ML UD CUP MT SCH ×2 (09:00→20:11)
[2017-09-30] MEDS: DOCUSATE SODIUM 10 MG/ML (10ML CUP) GTB SCH ×2 (09:11→20:11)
[2017-09-30] MEDS: LEVETIRACETAM (100 MG/ML) 5ML CUP GTB SCH ×2 (09:11→20:11)
[2017-09-30] MEDS: SENNA (PO SYG) GTB SCH ×2 (09:12→20:11)
[2017-09-30] MEDS: MULTIVITAMINS 30 ML CUP GTB SCH (09:12)
[2017-09-30] MEDS: VALPROIC ACID LIQUID CUP 250 MG/5 ML CUP GTB SCH ×2 (09:12→20:11)
[2017-09-30] MEDS: DULOXETINE 30 MG CAP DR PO SCH (09:13)
[2017-09-30] MEDS: BALSAM PERU/CASTOR OIL 60 GM TUBE TOP SCH ×2 (09:13→20:12)
[2017-09-30] MEDS: FOLIC ACID 1 MG TAB GTB SCH (09:13)
[2017-09-30] MEDS: LORAZEPAM 2 MG INJ IV PRN ×3 (09:36→20:11)
--- NOTE | 2017-09-30 10:14 | PN ---
DATE: 09/30/2017 SUBJECTIVE: The patient is stable, tolerating p.o. The patient expresses no suicidal ideation. No other events noted. OBJECTIVE: VITAL SIGNS: Blood pressure is 85/47, respiration 18, pulse 87, temperature 97.9. HEENT: Head is normocephalic. NECK: Supple. HEART: Regular rate. LUNGS: Show diminished breath sounds at the base. ABDOMEN: Soft, nontender to palpation. No rebound or guarding. EXTREMITIES: Negative for clubbing, cyanosis, no edema. DERMATOLOGIC: No rashes. MUSCULOSKELETAL: No joint effusions. NEUROLOGIC: No change in exam. MEDICATIONS: The patient's medications have been reviewed. LABORATORY DATA: Has been reviewed. No new labs. ASSESSMENT AND PLAN: 1. Status post cardiac arrest secondary to drug overdose. The patient is currently stable. Contin ue to monitor. 2. Chronic respiratory failure, status post tracheostomy, status post decannulation. Continue to o bserve. 3. Dysphagia. The patient is tolerating oral intake. GI consult was placed to consider removal of PEG. I spoke with the patient and the importance of taking medications orally, otherwise PEG canno t be removed. The patient voiced understanding. 4. Hypothyroidism. Continue Synthroid. 5. Seizure disorder, continue Keppra. 6. Urinary tract infection. The patient is completing course of Cipro. 7. History of depression and anxiety disorder. Continue Ativan, valproic acid, Cymbalta. 8. Anemia. Monitor hemoglobin and hematocrit levels. 9. Encephalopathy, toxic metabolic, improving. 10. Gastrointestinal and deep venous thrombosis prophylaxis. Dictated By: RANJIT MARTINEZ/FREYA Conf#: [id number] DID#: [id number]
[2017-09-30] MEDS: morphine 2 MG INJ IV PRN (13:09)
[2017-09-30 20:06] VITALS: BP 95/51; RESP 18
[2017-09-30] MEDS: traZODone 100 MG TAB GTB SCH (20:07)
[2017-09-30] MEDS: LATUDA 80 MG TABLET GTB SCH (20:08)
[2017-10-01 02:14] VITALS: BP 91/51; RESP 18
[2017-10-01] MEDS: LEVOTHYROXINE 100 MCG TAB GTB SCH (06:39)
[2017-10-01] MEDS: LANSOPRAZOLE 30 MG CAP GTB SCH (06:39)
[2017-10-01] MEDS: CIPROFLOXACIN 500 MG TAB GTB SCH (06:39)
[2017-10-01] MEDS: CHLORHEXIDINE GLUCONATE 15 ML UD CUP MT SCH (09:00)
--- NOTE | 2017-10-01 09:04 | PN ---
DATE: 10/01/2017 SUBJECTIVE: The patient is stable. No events overnight. No fevers, chills, nausea, vomiting, no s hortness of breath. OBJECTIVE: VITAL SIGNS: Blood pressure is 91/51, respiration 18, pulse 81, temperature 97.8. HEENT: Head is normocephalic. NECK: Supple. HEART: Regular rate. LUNGS: Show diminished breath sounds at the base. ABDOMEN: Soft, nontender to palpation. No rebound or guarding. EXTREMITIES: Negative for clubbing, cyanosis, or edema. DERMATOLOGIC: No rashes. MUSCULOSKELETAL: No joint effusions. NEUROLOGIC: No change in exam. MEDICATIONS: The patient's medications have been reviewed. LABORATORY DATA: Have been reviewed. No new labs. ASSESSMENT AND PLAN: 1. Status post cardiac arrest secondary to drug overdose. The patient is currently stable. Contin ue to monitor. 2. Chronic respiratory failure, status post tracheostomy, status post decannulation. Continue to o bserve. 3. Dysphagia, status post percutaneous endoscopic gastrostomy. The patient is currently tolerating oral intake p.o. as well as her medications and gastroenterology consult will be placed for removal of percutaneous endoscopic gastrostomy. 4. Hypothyroidism. Continue Synthroid. 5. Seizure disorder. Continue Keppra. 6. Urinary tract infection. The patient is completing a course of Cipro. 7. History of depression and anxiety disorder. Continue Ativan, valproic acid and Cymbalta. 8. Anemia. Monitor hemoglobin and hematocrit levels. 9. Encephalopathy, toxic metabolic, improving. 10. Gastrointestinal and deep vein thrombosis prophylaxis. Dictated By: RANJIT MARTINEZ/FREYA Conf#: [id number] DID#: [id number]
[2017-10-01] MEDS: morphine 2 MG INJ IV PRN (09:13)
--- NOTE | 2017-10-01 09:14 | CONS ---
Date/Time of Note Date/Time of Note DATE: 10/01/17 TIME: :13 Consult Date/Type/Reason Admit Date/Time Sep 26, 2017 at 18:53 Objective Vital Signs Date Time Temp Pulse Resp B/P Pulse Ox O2 Delivery O2 Flow Rate FiO2 10/01/17 02:14 98.0 18 91/51 98 09/30/17 20:06 81 09/28/17 07:30 Room Air Intake and Output 09/30/17 09/30/17 10/01/17 15:00 23:00 07:00 Intake Total 2300 ml 490 ml Output Total 1200 ml Balance 1100 ml 490 ml INTERDISCIPLINARY TEAM CONFERENCE BOWEL- Cont BLADDER-Cont SKIN- intact OT- DRESSING-min/mod BATHING-min/mod TOILETING-min/mod PT- BED MOBILITY-min TRANSFERS-min AMBULATION-mod 40 feet SPEECH- COGNITION-mod DYPHAGIA A/P- Interdisciplinary team conference held today. Please see interdisciplinary sheet. Working toward d.c. on 10/08 with post discharge follow up of physical therapy, occupational therapy, speech therapy, in addition to follow up by PMD and psychiatry. Results/Medications Result Diagram: 09/28/17 0659 09/28/17 0659 Medications Current Medications Magnesium Hydroxide (Milk Of Mag) 30 ml BID PRN PO CONSTIPATION; Start at 19:30 Lactulose (Enulose) 20 gm DAILY PRN PO CONSTIPATION; Start 09/26/17 at 19:30 Bisacodyl (Dulcolax Supp) 10 mg DAILY PRN [place] CONSTIPATION; Start 09/26/17 at 19 :30 Acetaminophen (Tylenol Tab) 650 mg Q4H PRN PO PAIN; Start 09/26/17 at 19:30 Acetaminophen (Tylenol Supp) 650 mg Q4H PRN [place] PAIN AND OR ELEVATED TEMP; Start 09/26/17 at 22:00 Acetaminophen (Tylenol Liquid) 650 mg Q4H PRN GTB PAIN AND OR ELEVATED TEMP; Start 09/26/17 at 22:00 Eye Lubricant (Artificial Tears Oph) 1 drop Q1H PRN BOTH EYES DRY EYES; Start 09/26/17 at 22:00 Chlorhexidine Gluconate (Peridex) 15 ml Q12 MT Last administered on 09/30/17t 20:11; Admin Dose 15 ML; Start 09/27/17 at 09:00 Ciprofloxacin (Cipro) 500 mg BID@,18 GTB Last administered on 10/01/17 06:39 ; Admin Dose 500 MG; Start 09/27/17 at 06:00 Docusate Sodium (Colace Liquid Cup) 100 mg BID GTB Last administered on 20:11; Admin Dose 100 MG; Start 09/27/17 at 09:00 Folic Acid (Folic Acid) 1 mg DAILY GTB Last administered on 09/30/17 09:13; Admin Dose 1 MG; Start 09/27/17 at 09:00 Acetaminophen/ Hydrocodone Bitart ([place] (5/325)) 1 tab Q4H PRN GTB PAIN; Start 09/26/17 at 22:00 Multivitamins (Multivitamin) 30 ml DAILY GTB Last administered on 09/30/17 09: 12; Admin Dose 30 ML; Start 09/27/17 at 09:00 Ondansetron HCl (Zofran Inj) 4 mg Q6H PRN IV NAUSEA AND/OR VOMITING; Start 09/26/17 at 22:00 Patient Own Medication 0.5 ea QHS GTB Last administered on 09/30/17 20:08; Admin Dose 0.5 EA; Start 09/27/17 at 21:00 Valproate Sodium (Depakene Liquid Cup) 500 mg BID GTB Last administered on 09/30 20:11; Admin Dose 500 MG; Start 09/27/17 at 09:00 Trazodone HCl (Desyrel) 200 mg QHS GTB Last administered on 09/30/17 20:07; Admin Dose 200 MG; Start 09/27/17 at 21:00 Simethicone (Mylicon Oral Drop) 40 mg PRN PRN GTB GAS PAIN; Start 09/26/17 at 22:00 Acetaminophen/ Hydrocodone Bitart ([place] (5/325)) 2 tab Q4H PRN GTB PAIN Last administered on 09/30/17 09:15; Admin Dose 2 TAB; Start 09/26/17 at 22:30 Lansoprazole (Prevacid) 30 mg DAILY@06 GTB Last administered on 10/01/17 06:39 ; Admin Dose 30 MG; Start 09/27/17 at 06:00 Levetiracetam (Keppra Liquid) 500 mg BID GTB Last administered on 09/30/17 20: 11; Admin Dose 500 MG; Start 09/26/17 at 22:02 Levothyroxine Sodium (Synthroid) 100 mcg DAILY@06 GTB Last administered on 10/01 06:39; Admin Dose 100 MCG; Start 09/27/17 at 06:00 Morphine Sulfate (morphine) 2 mg Q2H PRN IV PAIN Last administered on 13:09; Admin Dose 2 MG; Start 09/26/17 at 22:30 Senna (Senokot (Ped)) 5 ml BID GTB Last administered on 09/30/17 20:11; Admin Dose 5 ML; Start 09/27/17 at 09:00 Lorazepam (Ativan) 2 mg Q4H PRN IV Anxiety/Seizure Last administered on 20:11; Admin Dose 2 MG; Start 09/26/17 at 22:45 Duloxetine HCl (Cymbalta) 30 mg DAILY PO Last administered on 09/30/17 09:13; Admin Dose 30 MG; Start 09/28/17 at 09:00 AMITA BILL MD Oct 01, 2017 09:14
[2017-10-01] MEDS: LEVETIRACETAM (100 MG/ML) 5ML CUP GTB SCH (09:15)
[2017-10-01] MEDS: L ACIDOPHIL/B LACTIS/B LONGUM CAPSULE PO SCH ×3 (09:16→17:05)
[2017-10-01] MEDS: DULOXETINE 30 MG CAP DR PO SCH (09:16)
[2017-10-01] MEDS: MULTIVITAMINS 30 ML CUP GTB SCH (09:16)
[2017-10-01] MEDS: VALPROIC ACID LIQUID CUP 250 MG/5 ML CUP GTB SCH (09:16)
[2017-10-01] MEDS: DOCUSATE SODIUM 10 MG/ML (10ML CUP) GTB SCH (09:16)
[2017-10-01] MEDS: FOLIC ACID 1 MG TAB GTB SCH (09:16)
[2017-10-01] MEDS: SENNA (PO SYG) GTB SCH (09:16)
[2017-10-01] MEDS: BALSAM PERU/CASTOR OIL 60 GM TUBE TOP SCH (09:17)
[2017-10-01] MEDS: LORAZEPAM 2 MG INJ IV PRN ×2 (09:47→15:26)
[2017-10-01 14:00] VITALS: BP 105/65; PULSE 88; RESP 18
[2017-10-01 19:45] VITALS: BP 103/62; PULSE 78; RESP 18
[2017-10-02 02:00] VITALS: BP 87/53; RESP 18
[2017-10-02] MEDS: CIPROFLOXACIN 500 MG TAB GTB SCH (06:00)
[2017-10-02 06:26] LABS: BASOPHILS % 0.4 % (0.0-2.0); EOSINOPHILS # 0.1 10^3/ul (0.0-0.5); EOSINOPHILS % 2.6 % (0.0-7.0); HEMATOCRIT 31.5 % (37.0-47.0); HEMOGLOBIN 10.5 g/dl (12.0-16.0); LYMPHOCYTES # 2.5 10^3/ul (0.8-2.9); MEAN CORPUSCULAR HEMOGLOBIN 32.4 pg (29.0-33.0); MEAN CORPUSCULAR HGB CONC 33.3 g/dl (32.0-37.0); MEAN CORPUSCULAR VOLUME 97.2 fl (82.0-101.0); MEAN PLATELET VOLUME 9.8 fl (7.4-10.4); MONOCYTE # 0.4 10^3/ul (0.3-0.9); MONOCYTES % 6.4 % (0.0-11.0); NEUTROPHIL # 2.5 10^3/ul (1.6-7.5); NEUTROPHILS % 45.4 % (39.0-77.0); PLATELET COUNT 194 10^3/UL (140-415); RED BLOOD COUNT 3.24 10^6/ul (4.20-5.40); RED CELL DISTRIBUTION WIDTH 14.2 % (11.5-14.5); WHITE BLOOD COUNT 5.5 10^3/ul (4.8-10.8)
[2017-10-02] MEDS: L ACIDOPHIL/B LACTIS/B LONGUM CAPSULE PO SCH ×3 (06:27→17:59)
[2017-10-02] MEDS: LEVOTHYROXINE 100 MCG TAB GTB SCH (06:28)
[2017-10-02] MEDS: LANSOPRAZOLE 30 MG CAP GTB SCH (06:28)
[2017-10-02 06:46] LABS: CALCIUM 9.1 mg/dl (8.4-10.2); CREATININE 0.56 mg/dl (0.44-1.00); MAGNESIUM 1.7 mg/dl (1.7-2.5); POTASSIUM 3.9 mmol/L (3.5-5.1)
[2017-10-02 07:36] VITALS: BP 90/58; RESP 18
[2017-10-02] MEDS: SENNA (PO SYG) GTB SCH ×2 (09:00→10:03)
[2017-10-02] MEDS: DOCUSATE SODIUM 10 MG/ML (10ML CUP) GTB SCH ×2 (09:00→10:04)
[2017-10-02] MEDS: CHLORHEXIDINE GLUCONATE 15 ML UD CUP MT SCH ×3 (09:00→20:24)
[2017-10-02] MEDS: BALSAM PERU/CASTOR OIL 60 GM TUBE TOP SCH ×3 (09:00→20:24)
[2017-10-02] MEDS: VALPROIC ACID LIQUID CUP 250 MG/5 ML CUP GTB SCH ×2 (09:00→10:05)
[2017-10-02] MEDS: LEVETIRACETAM (100 MG/ML) 5ML CUP GTB SCH ×2 (09:00→10:03)
--- NOTE | 2017-10-02 09:40 | PN ---
DATE: 10/02/2017 SUBJECTIVE: The patient is stable. No events overnight. The patient is tolerating p.o., and takin g all medications and food orally. No other events noted. OBJECTIVE: VITAL SIGNS: Blood pressure is 90/58, respiration is 18, pulse 72, temperature 98.1. HEENT: Head is normocephalic. NECK: Supple. HEART: Regular rate. LUNGS: Show diminished breath sounds at the base. ABDOMEN: Soft, nontender to palpation. No rebound or guarding. EXTREMITIES: Negative for clubbing, cyanosis, no edema. DERMATOLOGIC: No rashes. MUSCULOSKELETAL: No joint effusions. NEUROLOGIC: No change in exam. MEDICATIONS: The patient's medications have been reviewed. LABORATORY DATA: Showed sodium 145, potassium 3.9, bicarbonate 32, BUN 4, creatinine 0.56. White c ount 5.5, hemoglobin 10.5, hematocrit 31.5, platelet count is 194. ASSESSMENT AND PLAN: 1. Status post cardiac arrest secondary to drug overdose. The patient is currently stable. Contin ue to monitor. 2. Chronic respiratory failure, status post tracheostomy, status post decannulation, continue to mo nitor. 3. Dysphagia, status post percutaneous endoscopic gastrostomy. The patient is currently tolerating medications and feedings via oral intake. We will place a GI consult for removal of percutaneous e ndoscopic gastrostomy. 4. Hypernatremia. Would continue to encourage free water intake. 5. Hypothyroidism. Continue Synthroid. 6. Seizure disorder. Continue Keppra. 7. Urinary tract infection. The patient is completing a course of Cipro. 8. Depression and anxiety disorder. Continue Ativan, valproic acid and Cymbalta. 9. Anemia. Monitor hemoglobin and hematocrit levels. 10. Encephalopathy, improving. 11. Gastrointestinal and deep venous thrombosis prophylaxis. Continue proton pump inhibitor and se quential leg squeezers. Dictated By: RANJIT MARTINEZ/FREYA Conf#: [id number] DID#: [id number]
[2017-10-02] MEDS: LORAZEPAM 2 MG INJ IV PRN ×2 (09:58→14:30)
[2017-10-02] MEDS: DULOXETINE 30 MG CAP DR PO SCH (10:02)
[2017-10-02] MEDS: MULTIVITAMINS 30 ML CUP GTB SCH (10:02)
[2017-10-02] MEDS: FOLIC ACID 1 MG TAB GTB SCH (10:03)
[2017-10-02] MEDS ORDERED: HYDROCODONE/APAP (5/325) TAB PO PRN ×2 (10:52→10:53)
--- NOTE | 2017-10-02 12:24 | CONS ---
Date/Time of Note Date/Time of Note DATE: 10/02/17 TIME: 12:21 Consult Date/Type/Reason Admit Date/Time Sep 26, 2017 at 18:53 Subjective Patient comfortable, overall continues to improve Objective Vital Signs Date Time Temp Pulse Resp B/P Pulse Ox O2 Delivery O2 Flow Rate FiO2 10/02/17 07:36 98.1 72 18 90/58 98 10/01/17 19:45 Room Air Intake and Output 10/01/17 10/01/17 10/02/17 15:00 23:00 07:00 Intake Total 400 ml 240 ml Balance 400 ml 240 ml min assist transfer min assist ambulation Results/Medications Result Diagram: 10/02/17 0603 10/02/17 0603 Results 24 hrs Laboratory Tests Test 10/02/17 06:03 White Blood Count 5.5 Red Blood Count 3.24 L Hemoglobin 10.5 L Hematocrit 31.5 L Mean Corpuscular Volume 97.2 Mean Corpuscular Hemoglobin 32.4 Mean Corpuscular Hemoglobin Concent 33.3 Red Cell Distribution Width 14.2 Platelet Count 194 Mean Platelet Volume 9.8 Neutrophils % 45.4 Lymphocytes % 45.0 Monocytes % 6.4 Eosinophils % 2.6 Basophils % 0.4 Nucleated Red Blood Cells % 0.0 Neutrophils # 2.5 Lymphocytes # 2.5 Monocytes # 0.4 Eosinophils # 0.1 Basophils # 0.0 Nucleated Red Blood Cells # 0.0 Sodium Level 145 H Potassium Level 3.9 Chloride Level 107 Carbon Dioxide Level 32 H Anion Gap 10 Blood Urea Nitrogen 4 L Creatinine 0.56 Glucose Level 83 Calcium Level 9.1 Phosphorus Level 5.0 H Magnesium Level 1.7 Medications Current Medications Magnesium Hydroxide (Milk Of Mag) 30 ml BID PRN PO CONSTIPATION; Start at 19:30 Lactulose (Enulose) 20 gm DAILY PRN PO CONSTIPATION; Start 09/26/17 at 19:30 Bisacodyl (Dulcolax Supp) 10 mg DAILY PRN [place] CONSTIPATION; Start 09/26/17 at 19 :30 Acetaminophen (Tylenol Tab) 650 mg Q4H PRN PO PAIN; Start 09/26/17 at 19:30 Acetaminophen (Tylenol Supp) 650 mg Q4H PRN [place] PAIN AND OR ELEVATED TEMP; Start 09/26/17 at 22:00 Acetaminophen (Tylenol Liquid) 650 mg Q4H PRN GTB PAIN AND OR ELEVATED TEMP; Start 09/26/17 at 22:00 Eye Lubricant (Artificial Tears Oph) 1 drop Q1H PRN BOTH EYES DRY EYES; Start 09/26/17 at 22:00 Chlorhexidine Gluconate (Peridex) 15 ml Q12 MT Last administered on 10/02/17 10:05; Admin Dose 15 ML; Start 09/27/17 at 09:00 Ondansetron HCl (Zofran Inj) 4 mg Q6H PRN IV NAUSEA AND/OR VOMITING; Start 09/26/17 at 22:00 Morphine Sulfate (morphine) 2 mg Q2H PRN IV PAIN Last administered on 13:09; Admin Dose 2 MG; Start 09/26/17 at 22:30 Lorazepam (Ativan) 2 mg Q4H PRN IV Anxiety/Seizure Last administered on 09:58; Admin Dose 2 MG; Start 09/26/17 at 22:45 Duloxetine HCl (Cymbalta) 30 mg DAILY PO Last administered on 10/02/17 10:02; Admin Dose 30 MG; Start 09/28/17 at 09:00 Ciprofloxacin (Cipro) 500 mg BID@06,18 PO ; Start 10/02/17 at 10:48 Docusate Sodium (Colace) 100 mg BID PO ; Start 10/02/17 at 21:00 Folic Acid (Folic Acid) 1 mg DAILY PO ; Start 10/02/17 at 10:50 Acetaminophen/ Hydrocodone Bitart ([place] (5/325)) 1 tab Q4H PRN PO PAIN; Start 10/02/17 at 10:52 Acetaminophen/ Hydrocodone Bitart ([place] (5/325)) 2 tab Q4H PRN PO PAIN; Start 10/02/17 at 10:53 Multivitamins Therapeutic (Theragran) 1 tab DAILY PO ; Start 10/03/17 at 09:00 Lansoprazole (Prevacid) 30 mg DAILY@06 PO ; Start 10/02/17 at 10:56 Trazodone HCl (Desyrel) 200 mg QHS PO ; Start 10/02/17 at 10:57 Levothyroxine Sodium (Synthroid) 100 mcg DAILY@06 PO ; Start 10/02/17 at 10:57 Levetiracetam (Keppra) 500 mg BID PO ; Start 10/02/17 at 21:00 Patient Own Medication 0.5 ea QHS PO ; Start 10/02/17 at 11:01 Senna (Senokot (Ped)) 5 ml BID PO ; Start 10/02/17 at 11:02 Simethicone (Mylicon Oral Drop) 40 mg PRN PRN PO GAS PAIN; Start 10/02/17 at 11 :03 Valproic Acid (Depakene) 500 mg BID PO ; Start 10/02/17 at 21:00 Assessment/Plan Additional Assessment/Plan Rehab- Toxic metabolic encephalopathy in addition to blunt head trauma. Progressing with rehab treatment plan. Debility, status post respiratory failure. Status post pneumonia. Seizure disorder. Acute renal failure. Dysphagia- speech therapy following Anemia. .Depression- continue current meds AMITA BILL MD Oct 02, 2017 12:24
[2017-10-02 13:48] VITALS: BP 96/58; RESP 18
[2017-10-02 14:00] VITALS: BP 124/58; RESP 20
[2017-10-02] MEDS: CIPROFLOXACIN 500 MG TAB PO SCH (18:00)
[2017-10-02 20:00] VITALS: BP 100/54; RESP 18
[2017-10-02] MEDS: LATUDA 80 MG TABLET PO SCH (20:17)
[2017-10-02] MEDS: traZODone 100 MG TAB PO SCH (20:18)
[2017-10-02] MEDS: LEVETIRACETAM 500 MG TAB PO SCH (20:18)
[2017-10-02] MEDS: DOCUSATE SODIUM 100 MG CAP PO SCH (20:18)
[2017-10-02] MEDS: LORAZEPAM 1 MG TAB PO PRN (20:19)
[2017-10-02] MEDS: SENNA (PO SYG) PO SCH (20:22)
[2017-10-02] MEDS: VALPROIC ACID 250 MG CAP PO SCH (21:00)
[2017-10-03 02:00] VITALS: BP 95/51; RESP 18
[2017-10-03 02:03] VITALS: BP_SYST 100; BP_SYST 135; BP_DIAS 54; BP_DIAS 68; RESP 18; RESP 19
[2017-10-03] MEDS: LEVOTHYROXINE 100 MCG TAB PO SCH (06:51)
[2017-10-03] MEDS: LANSOPRAZOLE 30 MG CAP PO SCH (06:51)
[2017-10-03] MEDS: CIPROFLOXACIN 500 MG TAB PO SCH ×2 (06:51→17:46)
[2017-10-03] MEDS: SENNA (PO SYG) PO SCH ×2 (09:00→21:00)
--- NOTE | 2017-10-03 09:01 | PN ---
DATE: 10/03/2017 SUBJECTIVE: The patient is stable. No events overnight. No fevers, chills, nausea, vomiting. OBJECTIVE: VITAL SIGNS: Blood pressure is 135/68, temperature 98.6, pulse 102, respirations 20. HEENT: Head is normocephalic. NECK: Supple. HEART: Regular rate. LUNGS: Show diminished breath sounds at the base. ABDOMEN: Soft, nontender to palpation. No rebound or guarding. EXTREMITIES: Negative for clubbing, cyanosis, no edema. DERMATOLOGIC: No rashes. MUSCULOSKELETAL: No joint effusions. NEUROLOGIC: No change in exam. MEDICATIONS: Have been reviewed. LABORATORY DATA: Has been reviewed. ASSESSMENT AND PLAN: 1. Status post cardiac arrest secondary to drug overdose. The patient is currently stable. 2. Chronic respiratory failure, status post tracheostomy, status post decannulation. Continue to m onitor. 3. Dysphagia, status post percutaneous endoscopic gastrostomy. The patient's percutaneous endoscop ic gastrostomy tube has been removed by gastroenterology. Continue to monitor. 4. Hypernatremia. Continue to encourage free water intake. 5. Hypothyroidism. Continue Synthroid. 6. Seizure disorder. Continue Keppra. 7. The patient is completing antibiotic course. 8. Anemia. Monitor hemoglobin and hematocrit levels. 9. Encephalopathy, improving. 10. Depression and anxiety disorder. Continue medical management. 11. Gastrointestinal and deep venous thrombosis prophylaxis. Dictated By: RANJIT MARTINEZ/FREYA Conf#: [id number] DID#: [id number]
[2017-10-03] MEDS: DOCUSATE SODIUM 100 MG CAP PO SCH ×2 (09:52→20:08)
[2017-10-03] MEDS: LEVETIRACETAM 500 MG TAB PO SCH ×2 (09:52→20:08)
[2017-10-03] MEDS: VALPROIC ACID 250 MG CAP PO SCH ×2 (09:52→20:08)
[2017-10-03] MEDS: MULTIVITAMINS THERAPEUTIC TAB PO SCH (09:52)
[2017-10-03] MEDS: DULOXETINE 30 MG CAP DR PO SCH (09:52)
[2017-10-03] MEDS: FOLIC ACID 1 MG TAB PO SCH (09:53)
[2017-10-03] MEDS: L ACIDOPHIL/B LACTIS/B LONGUM CAPSULE PO SCH ×3 (09:53→17:46)
[2017-10-03] MEDS: BALSAM PERU/CASTOR OIL 60 GM TUBE TOP SCH ×2 (09:54→21:00)
[2017-10-03] MEDS: CHLORHEXIDINE GLUCONATE 15 ML UD CUP MT SCH ×2 (09:54→21:00)
[2017-10-03] MEDS: LORAZEPAM 1 MG TAB PO PRN ×2 (10:03→20:08)
--- NOTE | 2017-10-03 11:54 | CONS ---
Date/Time of Note Date/Time of Note DATE: 10/03/17 TIME: 11:54 Consult Date/Type/Reason Admit Date/Time Sep 26, 2017 at 18:53 Subjective Comfortable, motivated Objective pulm-cta min assist ambulation Vital Signs Date Time Temp Pulse Resp B/P Pulse Ox O2 Delivery O2 Flow Rate FiO2 10/03/17 02:03 98.0 78 19 135/68 96 10/01/17 19:45 Room Air Intake and Output 10/02/17 10/02/17 10/03/17 15:00 23:00 07:00 Intake Total 420 ml 1600 ml 150 ml Output Total 1650 ml Balance 420 ml -50 ml 150 ml Results/Medications Result Diagram: 10/02/1760210/02/17 0603 Medications Current Medications Magnesium Hydroxide (Milk Of Mag) 30 ml BID PRN PO CONSTIPATION; Start at 19:30 Lactulose (Enulose) 20 gm DAILY PRN PO CONSTIPATION Last administered on 09:52; Admin Dose 20 GM; Start 09/26/17 at 19:30 Bisacodyl (Dulcolax Supp) 10 mg DAILY PRN [place] CONSTIPATION; Start 09/26/17 at 19 :30 Acetaminophen (Tylenol Tab) 650 mg Q4H PRN PO PAIN Last administered on 11:46; Admin Dose 650 MG; Start 09/26/17 at 19:30 Acetaminophen (Tylenol Supp) 650 mg Q4H PRN [place] PAIN AND OR ELEVATED TEMP; Start 09/26/17 at 22:00 Acetaminophen (Tylenol Liquid) 650 mg Q4H PRN GTB PAIN AND OR ELEVATED TEMP; Start 09/26/17 at 22:00 Eye Lubricant (Artificial Tears Oph) 1 drop Q1H PRN BOTH EYES DRY EYES; Start 09/26/17 at 22:00 Chlorhexidine Gluconate (Peridex) 15 ml Q12 MT Last administered on 10/03/17 09:54; Admin Dose 15 ML; Start 09/27/17 at 09:00 Ondansetron HCl (Zofran Inj) 4 mg Q6H PRN IV NAUSEA AND/OR VOMITING; Start 09/26/17 at 22:00 Morphine Sulfate (morphine) 2 mg Q2H PRN IV PAIN Last administered on 13:09; Admin Dose 2 MG; Start 09/26/17 at 22:30 Duloxetine HCl (Cymbalta) 30 mg DAILY PO Last administered on 10/03/17 09:52; Admin Dose 30 MG; Start 09/28/17 at 09:00 Ciprofloxacin (Cipro) 500 mg BID@06,18 PO Last administered on 10/03/17 06:51 ; Admin Dose 500 MG; Start 10/02/17 at 10:48 Docusate Sodium (Colace) 100 mg BID PO Last administered on 10/03/17 09:52; Admin Dose 100 MG; Start 10/02/17 at 21:00 Folic Acid (Folic Acid) 1 mg DAILY PO Last administered on 10/03/17 09:53; Admin Dose 1 MG; Start 10/02/17 at 10:50 Acetaminophen/ Hydrocodone Bitart ([place] (5/325)) 1 tab Q4H PRN PO PAIN; Start 10/02/17 at 10:52 Acetaminophen/ Hydrocodone Bitart ([place] (5/325)) 2 tab Q4H PRN PO PAIN; Start 10/02/17 at 10:53 Multivitamins Therapeutic (Theragran) 1 tab DAILY PO Last administered on 09:52; Admin Dose 1 TAB; Start 10/03/17 at 09:00 Lansoprazole (Prevacid) 30 mg DAILY@06 PO Last administered on 10/03/17 06:51 ; Admin Dose 30 MG; Start 10/02/17 at 10:56 Trazodone HCl (Desyrel) 200 mg QHS PO Last administered on 10/02/17 20:18; Admin Dose 200 MG; Start 10/02/17 at 10:57 Levothyroxine Sodium (Synthroid) 100 mcg DAILY@06 PO Last administered on 06:51; Admin Dose 100 MCG; Start 10/02/17 at 10:57 Levetiracetam (Keppra) 500 mg BID PO Last administered on 10/03/17 09:52; Admin Dose 500 MG; Start 10/02/17 at 21:00 Patient Own Medication 0.5 ea QHS PO Last administered on 10/02/17 20:17; Admin Dose 0.5 EA; Start 10/02/17 at 11:01 Senna (Senokot (Ped)) 5 ml BID PO Last administered on 10/02/17 20:22; Admin Dose 5 ML; Start 10/02/17 at 11:02 Simethicone (Mylicon Oral Drop) 40 mg PRN PRN PO GAS PAIN; Start 10/02/17 at 11 :03 Valproic Acid (Depakene) 500 mg BID PO Last administered on 10/03/17 09:52; Admin Dose 500 MG; Start 10/02/17 at 21:00 Lorazepam (Ativan) 2 mg Q4 PRN PO AGITATION/ANXIETY Last administered on 10:03; Admin Dose 2 MG; Start 10/02/17 at 19:30 Assessment/Plan Additional Assessment/Plan Rehab- Toxic metabolic encephalopathy in addition to blunt head trauma. Progressing with rehab treatment plan. Begin caregiver training Debility, status post respiratory failure. Status post pneumonia. Seizure disorder. Acute renal failure. Dysphagia- speech therapy following Anemia. .Depression- continue current meds AMITA BILL MD Oct 03, 2017 11:54
--- NOTE | 2017-10-03 13:45 | CONS ---
DATE OF ADMISSION: 09/26/2017 DATE OF CONSULTATION: 10/02/2017 REASON FOR CONSULTATION: Removal of the G-tube. HISTORY OF PRESENT ILLNESS: A 47-year-old female with a history of depression, hypothyroidism, fibr omyalgia initially presented to the hospital after overdosing with Wellbutrin and Cymbalta. She tri ed to attempt suicide. The patient was also intoxicated with alcohol. She was unresponsive and had a seizure. Outside the hospital the patient was in respiratory failure requiring intubation and florentino ntually trached and PEG'd and transferred to [facility]. While in the [place], the patient resp onded well, was able to be weaned off the vent and decannulation was done. GI consult was called in for the removal of the G-tube since the patient has been eating 100% and this was verified both wit h the patient and the staff nurse, Tasha. PAST MEDICAL HISTORY: As described, depression, anxiety, fibromyalgia. FAMILY HISTORY: Nothing contributory. SOCIAL HISTORY: Alcohol abuse. REVIEW OF SYSTEMS: Negative. PHYSICAL EXAMINATION GENERAL: Alert, awake, not in distress. VITAL SIGNS: Stable. HEENT: Unremarkable. NECK: Supple, no thyromegaly, no lymphadenopathy. CARDIOVASCULAR: No murmur, gallop or click. LUNGS: Clear and tracheostomy tube was removed and it was covered with a dressing. ABDOMEN: Soft. The G-tube was in place. There was granulation tissue which was friable, this is i n the abdomen. EXTREMITIES: No edema. CENTRAL NERVOUS SYSTEM: Grossly within normal limits. IMPRESSION: 1. Status post cardiac arrest secondary to drug overdose. 2. Status post respiratory failure, tracheostomy and removal of the tracheostomy tube. 3. Dysphagia. Patient is on G-tube; now the dysphagia is totally resolved. The patient is eating 100%. 4. Hypothyroidism. 5. Seizure disorder. 6. Urinary tract infection. 7. Depression. 8. Deconditioning. PLAN: At this point, is to remove the G-tube. Discussed with the patient and she has agreed, she s igned the consent. The risk of the procedure, related and unrelated complications, explained which she understood and a greed. The procedure was done bedside. The patient was in the supine position and as per the ____( 02:51) section, G-tube was removed by traction method. The patient tolerated the procedure very wel l. IMPRESSION: Successful placement of G-tube done. Plan is to resume feeding through the mouth, cove r the G-tube site with a dressing and if there is no discharge then tomorrow morning, she can go for a shower. Dictated By: CASH HOOPER/FREYA Conf#: [id number] DID#: [id number]
[2017-10-03 20:00] VITALS: BP 101/58; RESP 20
[2017-10-03] MEDS: traZODone 100 MG TAB PO SCH (20:09)
--- NOTE | 2017-10-03 21:18 | CONS ---
DATE OF ADMISSION: 09/26/2017 DATE OF CONSULTATION: 10/03/2017 TYPE OF CONSULTATION: Psychological REFERRING PHYSICIAN: Alda Oliva MD CONSULTING PSYCHOLOGIST: Vincent Latham, PhD REASON FOR CONSULTATION: This consultation was requested by Dr. Joselin Oliva in order to evaluate the cognitive and emotional functioning of this patient related to her present medical condition. HISTORY OF PRESENT ILLNESS: The patient is a 47-year-old female. She has a very long history of bi polar disorder. The patient reports that she has been diagnosed and treated for bipolar disorder fo r over 20 years. The patient does see a psychiatrist once per month and is on psychiatric medicatio ns. The patient had been drinking every day. She reports that she was over drinking and then took all of her medications and overdosed which resulted in toxic metabolic encephalopathy. The patient was cleared medically and then transferred to the acute rehabilitation unit for acute multidisciplin rodrick rehabilitation. The patient is motivated to get better. The patient reports that she is presen tly not suicidal. The patient has not been hospitalized per her report for bipolar disorder. The p atient is motivated to return to her previous level of functioning. FAMILY AND SOCIAL HISTORY: The patient reports that she lives in a home in [place] with her and 27-year-old daughter. The patient does want to return there after discharge. MEDICATIONS: The patient is on: 1. Depakene 500 mg b.i.d. 2. Ativan 2 mg q.4 hours p.r.n. 3. Trazodone 200 mg at bedtime. SUBSTANCE USE: The patient reports that she had been drinking every day, at different amounts every day and has a tendency to overuse alcohol. The patient also reports that she was smoking 2 packs o f cigarettes per day prior to entering the hospital. She says she is now going to quit smoking. MENTAL STATUS EXAMINATION: APPEARANCE: The patient was seen in bed. She is of average height and weight. The patient is righ t-handed. BEHAVIOR: The patient was cooperative during the consultation. The patient did attempt to answer a ll questions presented to her by the interviewer. The patient did get confused at times with some o f the questions but did attempt to answer them. The patient's mood fluctuated a little bit with juan alberto e inappropriate laughter. MOOD AND AFFECT: The patient's mood appears to be slightly depressed. Affect does appear to be sli ghtly anxious. PERCEPTION: The patient reports no hallucinations or delusions. The patient was alert to person, p lace, situation and time. MEMORY AND COGNITION: The patient's memory and cognition has some impairment. She was able to come up with the name of the hospital and the month and the year. The patient was able to spell "world" backwards. The patient was able to do only 1 serial 7 subtraction before making an error. The pat ient could state who the contract clerk is but thought that the governor of the [place] was [place] and could not come up with who the mayor of the [facility] is. Overall, the patient does appear to continuing to have some slight toxic metabolic issues, maybe resulting from her overd ose. INTELLIGENCE: Intelligence appears to fall in the average range. INSIGHT: Fair. JUDGMENT: Fair. THOUGHT CONTENT: The patient is concerned about her present medical condition. The patient is conc erned about what happened to her and why she did it. The patient reports that she is not going to d o this again. The patient wants to return home and wants to go back to her previous level of functi oning. The patient did state that she has been very depressed for a long time and this led to her d rinking more and the confusion and then overdosed. DISCUSSION: The patient can likely benefit from some one-to-one cognitive/behavioral psychotherapy while she is on the unit. This psychotherapy would focus on mood stabilization, coping skills. The patient is recommended to return back to her psychiatrist after she leaves the hospital. The patie nt could not remember what her psychiatrist's name is but does say that she sees her once per month. DIAGNOSTIC IMPRESSION: 1. F31.32, bipolar disorder, current episode depressed, moderate. 2. F06.8, cognitive disorder, not otherwise specified. 3. F10.10, alcohol abuse. Thank you very much, Dr. Joselin Oliva, for referring this individual. Please do not hesitate to ca ll if you have additional questions. Dictated By: VINCENT LATHAM PHD RK/FREYA Conf#: [id number] DID#: [id number]
[2017-10-03] MEDS: LATUDA 80 MG TABLET PO SCH (21:41)
[2017-10-04 02:00] VITALS: BP 120/52; RESP 19
[2017-10-04] MEDS: CIPROFLOXACIN 500 MG TAB PO SCH (06:37)
[2017-10-04] MEDS: LANSOPRAZOLE 30 MG CAP PO SCH (06:37)
[2017-10-04] MEDS: L ACIDOPHIL/B LACTIS/B LONGUM CAPSULE PO SCH ×3 (06:37→17:19)
[2017-10-04] MEDS: LEVOTHYROXINE 100 MCG TAB PO SCH (06:37)
[2017-10-04 07:00] VITALS: BP 101/53; RESP 18
[2017-10-04 08:05] VITALS: BP 101/53; PULSE 69; RESP 18
[2017-10-04 08:40] VITALS: BP 91/54; RESP 20
[2017-10-04] MEDS: SENNA (PO SYG) PO SCH ×2 (09:00→20:14)
[2017-10-04] MEDS: CHLORHEXIDINE GLUCONATE 15 ML UD CUP MT SCH ×2 (09:00→20:13)
--- NOTE | 2017-10-04 09:33 | CONS ---
Date/Time of Note Date/Time of Note DATE: 10/04/17 TIME: 09:32 Consult Date/Type/Reason Admit Date/Time Sep 26, 2017 at 18:53 Subjective Patient comfortable in good spirits. She reports her is able to come in for caregiver training Objective Lungs clear abdomen soft Min assist Vital Signs Date Time Temp Pulse Resp B/P Pulse Ox O2 Delivery O2 Flow Rate FiO2 10/04/17 08:40 98.3 73 20 91/54 100 10/04/17 08:05 Room Air Intake and Output 10/03/17 10/03/17 10/04/17 15:00 23:00 07:00 Intake Total 1600 ml 400 ml Output Total 1000 ml Balance 1600 ml -600 ml Results/Medications Result Diagram: 10/02/1760210/02/17 0603 Medications Current Medications Magnesium Hydroxide (Milk Of Mag) 30 ml BID PRN PO CONSTIPATION; Start at 19:30 Lactulose (Enulose) 20 gm DAILY PRN PO CONSTIPATION Last administered on 09:52; Admin Dose 20 GM; Start 09/26/17 at 19:30 Bisacodyl (Dulcolax Supp) 10 mg DAILY PRN [place] CONSTIPATION; Start 09/26/17 at 19 :30 Acetaminophen (Tylenol Tab) 650 mg Q4H PRN PO PAIN Last administered on 11:46; Admin Dose 650 MG; Start 09/26/17 at 19:30 Acetaminophen (Tylenol Supp) 650 mg Q4H PRN [place] PAIN AND OR ELEVATED TEMP; Start 09/26/17 at 22:00 Acetaminophen (Tylenol Liquid) 650 mg Q4H PRN GTB PAIN AND OR ELEVATED TEMP; Start 09/26/17 at 22:00 Eye Lubricant (Artificial Tears Oph) 1 drop Q1H PRN BOTH EYES DRY EYES; Start 09/26/17 at 22:00 Chlorhexidine Gluconate (Peridex) 15 ml Q12 MT Last administered on 10/03/17 09:54; Admin Dose 15 ML; Start 09/27/17 at 09:00 Ondansetron HCl (Zofran Inj) 4 mg Q6H PRN IV NAUSEA AND/OR VOMITING; Start 09/26/17 at 22:00 Morphine Sulfate (morphine) 2 mg Q2H PRN IV PAIN Last administered on 13:09; Admin Dose 2 MG; Start 09/26/17 at 22:30 Duloxetine HCl (Cymbalta) 30 mg DAILY PO Last administered on 10/03/17 09:52; Admin Dose 30 MG; Start 09/28/17 at 09:00 Ciprofloxacin (Cipro) 500 mg BID@,18 PO Last administered on 10/04/17 06:37 ; Admin Dose 500 MG; Start 10/02/17 at 10:48 Docusate Sodium (Colace) 100 mg BID PO Last administered on 10/03/17 20:08; Admin Dose 100 MG; Start 10/02/17 at 21:00 Folic Acid (Folic Acid) 1 mg DAILY PO Last administered on 10/03/17 09:53; Admin Dose 1 MG; Start 10/02/17 at 10:50 Acetaminophen/ Hydrocodone Bitart ([place] (5/325)) 1 tab Q4H PRN PO PAIN; Start 10/02/17 at 10:52 Acetaminophen/ Hydrocodone Bitart ([place] (5/325)) 2 tab Q4H PRN PO PAIN; Start 10/02/17 at 10:53 Multivitamins Therapeutic (Theragran) 1 tab DAILY PO Last administered on 09:52; Admin Dose 1 TAB; Start 10/03/17 at 09:00 Lansoprazole (Prevacid) 30 mg DAILY@06 PO Last administered on 10/04/17 06:37 ; Admin Dose 30 MG; Start 10/02/17 at 10:56 Trazodone HCl (Desyrel) 200 mg QHS PO Last administered on 10/03/17 20:09; Admin Dose 200 MG; Start 10/02/17 at 10:57 Levothyroxine Sodium (Synthroid) 100 mcg DAILY@06 PO Last administered on 06:37; Admin Dose 100 MCG; Start 10/02/17 at 10:57 Levetiracetam (Keppra) 500 mg BID PO Last administered on 10/03/17 20:08; Admin Dose 500 MG; Start 10/02/17 at 21:00 Patient Own Medication 0.5 ea QHS PO Last administered on 10/03/17 21:41; Admin Dose 0.5 EA; Start 10/02/17 at 11:01 Senna (Senokot (Ped)) 5 ml BID PO Last administered on 10/02/17 20:22; Admin Dose 5 ML; Start 10/02/17 at 11:02 Simethicone (Mylicon Oral Drop) 40 mg PRN PRN PO GAS PAIN; Start 10/02/17 at 11 :03 Valproic Acid (Depakene) 500 mg BID PO Last administered on 10/03/17 20:08; Admin Dose 500 MG; Start 10/02/17 at 21:00 Lorazepam (Ativan) 2 mg Q4 PRN PO AGITATION/ANXIETY Last administered on 20:08; Admin Dose 2 MG; Start 10/02/17 at 19:30 Assessment/Plan Additional Assessment/Plan Rehab- Toxic metabolic encephalopathy in addition to blunt head trauma. Progressing with rehab activities Debility, status post respiratory failure. Status post pneumonia. Seizure disorder. Acute renal failure. Dysphagia- improved po intake, Gtube removed. Anemia. .Depression- continue current meds AMITA BILL MD Oct 04, 2017 09:33
--- NOTE | 2017-10-04 09:35 | PN ---
DATE: 10/04/2017 SUBJECTIVE: The patient is stable. No events overnight. OBJECTIVE: VITAL SIGNS: Blood pressure is 101/53, temperature 98.3, pulse 73, respiration 18. HEENT: Head is normocephalic. NECK: Supple. HEART: Regular rate. LUNGS: Show diminished breath sounds at the base. ABDOMEN: Soft, nontender to palpation. No rebound or guarding. EXTREMITIES: Negative for clubbing, cyanosis, no edema. DERMATOLOGIC: No rashes. MUSCULOSKELETAL: No joint effusions. NEUROLOGIC: No change in exam. MEDICATIONS: Have been reviewed. LABORATORY DATA: Has been reviewed. ASSESSMENT AND PLAN: 1. Status post cardiac arrest secondary to drug overdose. The patient has improved, currently stab le. 2. Chronic respiratory failure, status post tracheostomy, status post decannulation, currently stab le, continue to monitor. 3. Dysphagia status post PEG tube removal. The patient is tolerating p.o. well. Continue to monit or. 4. Hypothyroidism. Continue Synthroid. 5. Seizure disorder. Continue Keppra. 6. Anemia. Monitor any change in levels. 7. Encephalopathy, improving. 8. Depression and anxiety disorder. Continue medical management. 9. Gastrointestinal and deep venous thrombosis prophylaxis. Dictated By: RANJIT MARTINEZ/FREYA Conf#: [id number] DID#: [id number]
[2017-10-04] MEDS: DOCUSATE SODIUM 100 MG CAP PO SCH ×2 (09:40→20:11)
[2017-10-04] MEDS: DULOXETINE 30 MG CAP DR PO SCH (09:40)
[2017-10-04] MEDS: FOLIC ACID 1 MG TAB PO SCH (09:40)
[2017-10-04] MEDS: VALPROIC ACID 250 MG CAP PO SCH ×2 (09:40→20:12)
[2017-10-04] MEDS: LORAZEPAM 1 MG TAB PO PRN ×4 (09:40→20:12)
[2017-10-04] MEDS: MULTIVITAMINS THERAPEUTIC TAB PO SCH (09:40)
[2017-10-04] MEDS: LEVETIRACETAM 500 MG TAB PO SCH ×2 (09:45→20:12)
[2017-10-04] MEDS: BALSAM PERU/CASTOR OIL 60 GM TUBE TOP SCH ×2 (09:49→20:13)
[2017-10-04 19:00] VITALS: BP 96/51; RESP 18
[2017-10-04] MEDS: traZODone 100 MG TAB PO SCH (20:12)
[2017-10-04] MEDS: LATUDA 80 MG TABLET PO SCH (20:13)
[2017-10-05] MEDS: LEVOTHYROXINE 100 MCG TAB PO SCH (06:56)
[2017-10-05] MEDS: LANSOPRAZOLE 30 MG CAP PO SCH (06:56)
[2017-10-05] MEDS: L ACIDOPHIL/B LACTIS/B LONGUM CAPSULE PO SCH ×3 (07:05→18:07)
[2017-10-05] MEDS: VALPROIC ACID 250 MG CAP PO SCH ×2 (08:20→20:37)
[2017-10-05] MEDS: DOCUSATE SODIUM 100 MG CAP PO SCH ×2 (08:20→20:37)
[2017-10-05] MEDS: LEVETIRACETAM 500 MG TAB PO SCH ×2 (08:20→20:37)
[2017-10-05] MEDS: DULOXETINE 30 MG CAP DR PO SCH (08:20)
[2017-10-05] MEDS: SENNA (PO SYG) PO SCH ×2 (08:20→20:36)
[2017-10-05] MEDS: FOLIC ACID 1 MG TAB PO SCH (08:20)
[2017-10-05] MEDS: MULTIVITAMINS THERAPEUTIC TAB PO SCH (08:20)
[2017-10-05] MEDS: BALSAM PERU/CASTOR OIL 60 GM TUBE TOP SCH ×2 (08:21→20:40)
[2017-10-05 08:30] VITALS: BP 98/56; RESP 20
--- NOTE | 2017-10-05 09:42 | PN ---
DATE: 10/05/2017 SUBJECTIVE: The patient is stable. No events overnight. No fevers, chills, nausea, vomiting. OBJECTIVE: VITAL SIGNS: Blood pressure is 101/53, temperature 98.4, pulse 74. HEENT: Head is normocephalic. NECK: Supple. HEART: Regular rate. LUNGS: Show diminished breath sounds at base. ABDOMEN: Soft, nontender to palpation. No rebound or guarding. EXTREMITIES: Negative for clubbing, cyanosis, no edema. DERMATOLOGIC: No rashes. MUSCULOSKELETAL: No joint effusions. NEUROLOGIC: No change in exam. MEDICATIONS: Have been reviewed. LABORATORY DATA: Has been reviewed. No new labs. ASSESSMENT AND PLAN: 1. Status post cardiac arrest secondary to drug overdose. The patient is clinically improved, curr ently stable. 2. Chronic respiratory failure, status post tracheostomy, status post decannulation. Continue to m onitor. 3. Dysphagia, status post percutaneous endoscopic gastrostomy removal. The patient is tolerating p .o. as well. Continue to monitor. 4. Hypothyroidism. Continue Synthroid. 5. Seizure disorder. Continue Keppra. 6. Anemia. Monitor hemoglobin and hematocrit levels. 7. Encephalopathy, improving. 8. Depression and anxiety disorder. Continue medical management. 9. Gastrointestinal and deep venous thrombosis prophylaxis. Dictated By: RANJIT MARTINEZ/FREYA Conf#: [id number] DID#: [id number]
--- NOTE | 2017-10-05 11:01 | CONS ---
Date/Time of Note Date/Time of Note DATE: 10/05/17 TIME: 11:01 Consult Date/Type/Reason Admit Date/Time Sep 26, 2017 at 18:53 Subjective Patient in good spirits Objective Lungs clear abdomen soft Vital Signs Date Time Temp Pulse Resp B/P Pulse Ox O2 Delivery O2 Flow Rate FiO2 10/04/17 19:00 98.3 74 18 96/51 97 10/04/17 08:05 Room Air Intake and Output 10/04/17 10/04/17 10/05/17 14:59 22:59 06:59 Intake Total 1200 ml Output Total 1500 ml Balance -300 ml Results/Medications Result Diagram: 10/02/17 0603 10/02/17 0603 Medications Current Medications Magnesium Hydroxide (Milk Of Mag) 30 ml BID PRN PO CONSTIPATION; Start at 19:30 Lactulose (Enulose) 20 gm DAILY PRN PO CONSTIPATION Last administered on 09:52; Admin Dose 20 GM; Start 09/26/17 at 19:30 Bisacodyl (Dulcolax Supp) 10 mg DAILY PRN [place] CONSTIPATION; Start 09/26/17 at 19 :30 Acetaminophen (Tylenol Tab) 650 mg Q4H PRN PO PAIN Last administered on 11:46; Admin Dose 650 MG; Start 09/26/17 at 19:30 Acetaminophen (Tylenol Supp) 650 mg Q4H PRN [place] PAIN AND OR ELEVATED TEMP; Start 09/26/17 at 22:00 Acetaminophen (Tylenol Liquid) 650 mg Q4H PRN GTB PAIN AND OR ELEVATED TEMP; Start 09/26/17 at 22:00 Eye Lubricant (Artificial Tears Oph) 1 drop Q1H PRN BOTH EYES DRY EYES; Start 09/26/17 at 22:00 Chlorhexidine Gluconate (Peridex) 15 ml Q12 MT Last administered on 10/04/17 20:13; Admin Dose 15 ML; Start 09/27/17 at 09:00 Ondansetron HCl (Zofran Inj) 4 mg Q6H PRN IV NAUSEA AND/OR VOMITING; Start 09/26/17 at 22:00 Morphine Sulfate (morphine) 2 mg Q2H PRN IV PAIN Last administered on 13:09; Admin Dose 2 MG; Start 09/26/17 at 22:30 Duloxetine HCl (Cymbalta) 30 mg DAILY PO Last administered on 10/05/17 08:20 ; Admin Dose 30 MG; Start 09/28/17 at 09:00 Docusate Sodium (Colace) 100 mg BID PO Last administered on 10/05/17 08:20; Admin Dose 100 MG; Start 10/02/17 at 21:00 Folic Acid (Folic Acid) 1 mg DAILY PO Last administered on 10/05/17 08:20; Admin Dose 1 MG; Start 10/02/17 at 10:50 Acetaminophen/ Hydrocodone Bitart ([place] (5/325)) 1 tab Q4H PRN PO PAIN; Start 10/02/17 at 10:52 Acetaminophen/ Hydrocodone Bitart ([place] (5/325)) 2 tab Q4H PRN PO PAIN Last administered on 10/04/17 17:19; Admin Dose 2 TAB; Start 10/02/17 at 10:53 Multivitamins Therapeutic (Theragran) 1 tab DAILY PO Last administered on 10/05 08:20; Admin Dose 1 TAB; Start 10/03/17 at 09:00 Lansoprazole (Prevacid) 30 mg DAILY@06 PO Last administered on 10/05/17 06:56 ; Admin Dose 30 MG; Start 10/02/17 at 10:56 Trazodone HCl (Desyrel) 200 mg QHS PO Last administered on 10/04/17 20:12; Admin Dose 200 MG; Start 10/02/17 at 10:57 Levothyroxine Sodium (Synthroid) 100 mcg DAILY@06 PO Last administered on 10/05 06:56; Admin Dose 100 MCG; Start 10/02/17 at 10:57 Levetiracetam (Keppra) 500 mg BID PO Last administered on 10/05/17 08:20; Admin Dose 500 MG; Start 10/02/17 at 21:00 Patient Own Medication 0.5 ea QHS PO Last administered on 10/04/17 20:13; Admin Dose 0.5 EA; Start 10/02/17 at 11:01 Senna (Senokot (Ped)) 5 ml BID PO Last administered on 10/05/17 08:20; Admin Dose 5 ML; Start 10/02/17 at 11:02 Simethicone (Mylicon Oral Drop) 40 mg PRN PRN PO GAS PAIN; Start 10/02/17 at 11 :03 Valproic Acid (Depakene) 500 mg BID PO Last administered on 10/05/17 08:20; Admin Dose 500 MG; Start 10/02/17 at 21:00 Lorazepam (Ativan) 2 mg Q4 PRN PO AGITATION/ANXIETY Last administered on 20:12; Admin Dose 2 MG; Start 10/02/17 at 19:30 Assessment/Plan Additional Assessment/Plan Rehab- Toxic metabolic encephalopathy in addition to blunt head trauma. Progressing with rehab treatment plan. caregiver training today with anticipated discharge home with family tomorrow Debility, status post respiratory failure. Status post pneumonia. Seizure disorder. Acute renal failure. Dysphagia- speech therapy following Anemia. .Depression- continue current meds AMITA BILL MD Oct 05, 2017 11:01
[2017-10-05] MEDS: CHLORHEXIDINE GLUCONATE 15 ML UD CUP MT SCH ×2 (12:20→20:37)
[2017-10-05] MEDS: LORAZEPAM 1 MG TAB PO PRN ×2 (12:20→21:20)
[2017-10-05 15:30] VITALS: BP 102/62; RESP 20
[2017-10-05 19:38] VITALS: BP 111/65; RESP 18
[2017-10-05] MEDS: LATUDA 80 MG TABLET PO SCH (20:34)
[2017-10-05] MEDS: traZODone 100 MG TAB PO SCH (20:37)
[2017-10-06 02:55] VITALS: BP 91/52; PULSE 59; RESP 18
[2017-10-06] MEDS: LEVOTHYROXINE 100 MCG TAB PO SCH (06:08)
[2017-10-06] MEDS: LANSOPRAZOLE 30 MG CAP PO SCH (06:09)
[2017-10-06] MEDS: L ACIDOPHIL/B LACTIS/B LONGUM CAPSULE PO SCH ×2 (06:11→11:51)
[2017-10-06 07:30] VITALS: BP 90/51; PULSE 70; RESP 16
[2017-10-06] MEDS: SENNA (PO SYG) PO SCH (08:19)
[2017-10-06] MEDS: LEVETIRACETAM 500 MG TAB PO SCH (08:20)
[2017-10-06] MEDS: FOLIC ACID 1 MG TAB PO SCH (08:20)
[2017-10-06] MEDS: MULTIVITAMINS THERAPEUTIC TAB PO SCH (08:20)
[2017-10-06] MEDS: DULOXETINE 30 MG CAP DR PO SCH (08:20)
[2017-10-06] MEDS: VALPROIC ACID 250 MG CAP PO SCH (08:20)
[2017-10-06] MEDS: DOCUSATE SODIUM 100 MG CAP PO SCH (08:20)
--- NOTE | 2017-10-06 08:26 | CONS ---
Date/Time of Note Date/Time of Note DATE: 10/06/17 TIME: 08:25 Consult Date/Type/Reason Admit Date/Time Sep 26, 2017 at 18:53 Initial Consult Date Subjective The patient is stable. No events overnight. No fevers, chills, nausea, vomiting. Tolerates meds and therapies. poc reviewed with dr. amor OBJECTIVE: HEENT: Head is normocephalic. NECK: Supple. HEART: Regular rate. LUNGS: Show diminished breath sounds at base. ABDOMEN: Soft, nontender to palpation. No rebound or guarding. EXTREMITIES: Negative for clubbing, cyanosis, no edema. DERMATOLOGIC: No rashes. MUSCULOSKELETAL: No joint effusions. NEUROLOGIC: No change in exam. MEDICATIONS: Have been reviewed. Objective Vital Signs Date Time Temp Pulse Resp B/P Pulse Ox O2 Delivery O2 Flow Rate FiO2 10/06/17 02:55 98.6 59 18 91/52 95 Room Air Intake and Output 10/05/17 10/05/17 10/06/17 14:59 22:59 06:59 Intake Total 720 ml 800 ml Balance 720 ml 800 ml Results/Medications Result Diagram: 10/02/17 0603 10/02/17 0603 Medications Current Medications Magnesium Hydroxide (Milk Of Mag) 30 ml BID PRN PO CONSTIPATION; Start at 19:30 Lactulose (Enulose) 20 gm DAILY PRN PO CONSTIPATION Last administered on 09:52; Admin Dose 20 GM; Start 09/26/17 at 19:30 Bisacodyl (Dulcolax Supp) 10 mg DAILY PRN [place] CONSTIPATION; Start 09/26/17 at 19 :30 Acetaminophen (Tylenol Tab) 650 mg Q4H PRN PO PAIN Last administered on 11:46; Admin Dose 650 MG; Start 09/26/17 at 19:30 Acetaminophen (Tylenol Supp) 650 mg Q4H PRN [place] PAIN AND OR ELEVATED TEMP; Start 09/26/17 at 22:00 Acetaminophen (Tylenol Liquid) 650 mg Q4H PRN GTB PAIN AND OR ELEVATED TEMP; Start 09/26/17 at 22:00 Eye Lubricant (Artificial Tears Oph) 1 drop Q1H PRN BOTH EYES DRY EYES; Start 09/26/17 at 22:00 Chlorhexidine Gluconate (Peridex) 15 ml Q12 MT Last administered on 10/05/17 20:37; Admin Dose 15 ML; Start 09/27/17 at 09:00 Ondansetron HCl (Zofran Inj) 4 mg Q6H PRN IV NAUSEA AND/OR VOMITING; Start 09/26/17 at 22:00 Morphine Sulfate (morphine) 2 mg Q2H PRN IV PAIN Last administered on 13:09; Admin Dose 2 MG; Start 09/26/17 at 22:30 Duloxetine HCl (Cymbalta) 30 mg DAILY PO Last administered on 10/06/17 08:20 ; Admin Dose 30 MG; Start 09/28/17 at 09:00 Docusate Sodium (Colace) 100 mg BID PO Last administered on 10/06/17 08:20; Admin Dose 100 MG; Start 10/02/17 at 21:00 Folic Acid (Folic Acid) 1 mg DAILY PO Last administered on 10/06/17 08:20; Admin Dose 1 MG; Start 10/02/17 at 10:50 Acetaminophen/ Hydrocodone Bitart ([place] (5/325)) 1 tab Q4H PRN PO PAIN Last administered on 10/05/17 19:43; Admin Dose 1 TAB; Start 10/02/17 at 10:52 Acetaminophen/ Hydrocodone Bitart ([place] (5/325)) 2 tab Q4H PRN PO PAIN Last administered on 10/04/17 17:19; Admin Dose 2 TAB; Start 10/02/17 at 10:53 Multivitamins Therapeutic (Theragran) 1 tab DAILY PO Last administered on 10/06 08:20; Admin Dose 1 TAB; Start 10/03/17 at 09:00 Lansoprazole (Prevacid) 30 mg DAILY@06 PO Last administered on 10/06/17 06:09 ; Admin Dose 30 MG; Start 10/02/17 at 10:56 Trazodone HCl (Desyrel) 200 mg QHS PO Last administered on 10/05/17 20:37; Admin Dose 200 MG; Start 10/02/17 at 10:57 Levothyroxine Sodium (Synthroid) 100 mcg DAILY@06 PO Last administered on 10/06 06:08; Admin Dose 100 MCG; Start 10/02/17 at 10:57 Levetiracetam (Keppra) 500 mg BID PO Last administered on 10/06/17 08:20; Admin Dose 500 MG; Start 10/02/17 at 21:00 Patient Own Medication 0.5 ea QHS PO Last administered on 10/05/17 20:34; Admin Dose 0.5 EA; Start 10/02/17 at 11:01 Senna (Senokot (Ped)) 5 ml BID PO Last administered on 10/06/17 08:19; Admin Dose 5 ML; Start 10/02/17 at 11:02 Simethicone (Mylicon Oral Drop) 40 mg PRN PRN PO GAS PAIN; Start 10/02/17 at 11 :03 Valproic Acid (Depakene) 500 mg BID PO Last administered on 10/06/17 08:20; Admin Dose 500 MG; Start 10/02/17 at 21:00 Lorazepam (Ativan) 2 mg Q4 PRN PO AGITATION/ANXIETY Last administered on 21:20; Admin Dose 2 MG; Start 10/02/17 at 19:30 Assessment/Plan Chief Complaint/Hosp Course 1. Status post cardiac arrest secondary to drug overdose. The patient is clinically improved, currently stable. 2. Chronic respiratory failure, status post tracheostomy, status post decannulation. Continue to monitor. 3. Dysphagia, status post percutaneous endoscopic gastrostomy removal. The patient is tolerating p.o. as well. Continue to monitor. 4. Hypothyroidism. Continue Synthroid. 5. Seizure disorder. Continue Keppra. 6. Anemia. Monitor hemoglobin and hematocrit levels. 7. Encephalopathy, improving. 8. Depression and anxiety disorder. Continue medical management. 9. Gastrointestinal and deep venous thrombosis prophylaxis. Problems: MELVI POP MD Oct 06, 2017 08:26
[2017-10-06] MEDS: LORAZEPAM 1 MG TAB PO PRN (09:04)
[2017-10-06] MEDS: CHLORHEXIDINE GLUCONATE 15 ML UD CUP MT SCH (09:06)
[2017-10-06] MEDS: BALSAM PERU/CASTOR OIL 60 GM TUBE TOP SCH (09:06)
--- NOTE | 2017-10-06 09:21 | DS ---
Date/Time of Note Date/Time of Note DATE: 10/06/17 TIME: 09:19 Discharge Summary Admission/Discharge Info Admit Date/Time Sep 26, 2017 at 18:53 Discharge Date/Time Discharge Diagnosis 1. Toxic metabolic encephalopathy in addition to blunt head trauma. 2. Debility, status post respiratory failure/cardiac arrest after medication overdose 3. Seizure disorder. 4. Acute renal failure. 5. Dysphagia. 6. Anemia. 7. Status post pneumonia. 8. h.o. depression 9. Improvements in self-care, mobility and cognition. Patient Condition: Good Hospital Course Patient was admitted for comprehensive interdisciplinary acute rehabilitation. Patient made steady functional gains and improved from a mod level to a Supervised level for self care and mobility, including ambulating over 150 feet with the use of a front wheeled walker. Patient is being discharged home with recommendations for home health PT and OT follow up and [facility] Follow up DME recommendations: [facility]; [facility]; Shower [facility] Patient will follow up with PMD and her psychiatrist upon DC. Primary Care Provider DO FLY Ely LIVA L. MD Oct 06, 2017 09:21
== END 2017-10-06 10:40 | disposition home health service (06) | DRG 92 ==
LOC: VRC 18:53
PROVIDERS: ADMIT Physical Medicine & Rehabilitation; ATTEND Internal Medicine Nephrology
PROC: F07Z5ZZ Bed Mobility Treatment (ICD-10-PCS; principal; 2017-09-26)
PROC: F08Z2ZZ Grooming/Personal Hygiene Treatment (ICD-10-PCS; 2017-09-26)
PROC: F06Z6ZZ Communicative/Cognitive Integration Skills Treatment (ICD-10-PCS; 2017-09-26)
DX: G92 Toxic encephalopathy (principal); N17.9 Acute kidney failure, unspecified; J96.10 Chronic respiratory failure, unspecified whether with hypoxia or hypercapnia; N39.0 Urinary tract infection, site not specified; S09.90XD Unspecified injury of head, subsequent encounter; Z86.74 Personal history of sudden cardiac arrest; G40.909 Epilepsy, unspecified, not intractable, without status epilepticus; R47.02 Dysphasia; D64.9 Anemia, unspecified; R53.81 Other malaise; F32.9 Major depressive disorder, single episode, unspecified; Z93.0 Tracheostomy status; E03.9 Hypothyroidism, unspecified; F41.9 Anxiety disorder, unspecified; F31.9 Bipolar disorder, unspecified; F10.10 Alcohol abuse, uncomplicated; X58.XXXD Exposure to other specified factors, subsequent encounter
CPT/HCPCS: 80048; 80053; 81003; 83735; 84100; 85025; 87081; 87086; 92507; 92523; 92526; 92610; 97110; 97112; 97116; 97150; 97163; 97167; 97530; 97535; 97542; J2060; J2270